=== PATIENT | female | born 1930 | race Caucasian/White ===

== ENCOUNTER 2017-03-11 15:52 | Inpatient (IN) | payer MEDICARE, MEDICAID ==
[~2017-03-11] VITALS: Ht 157.5 cm; Wt 83.6 kg
[~2017-03-11 15:52] MED LIST: AMLO2.5T78; BISO5TAB21; ESCI10TA; EZET1TAB9; FOLI-49; LOSA100T47
[2017-03-11] MEDS ORDERED: SOD CHLORIDE 0.9% 1,000 ML IV ONE (16:30)
--- NOTE | 2017-03-11 16:40 | ERA ---
ER Documentation Chief Complaint Date/Time DATE: 03/11/17 TIME: 16:16 Chief Complaint FEVER 103.1 X 4 DAYS HPI This is an 86-year-old female with a past medical history of dementia, previous stroke, atrial fibrillation who is presenting with fever, chills fatigue and generalized weakness for several days, but worse this morning. She was reportedly at her baseline yesterday according to her daughter and exhaust machine operator. Today she was far more fatigued than typical requiring extra effort by the exhaust machine operator in order to complete activities of daily living. The patient is incontinent at baseline, but she does not typically urinate herself while being dressed, which is what happened today. The patient has a warm and red right lower extremity, but the exhaust machine operator states that this was not the case this morning. The patient has had no congestion. She does not have a sore throat. She does not have any earache. She has not had a cough. She denies chest pain or trouble breathing. She has not been around any sick contacts. She received her flu shot this year. She received her pneumococcal vaccine within the last 5 years according to the daughter. The patient does not have a headache or vision changes. She denies any abdominal pain. She has not had any bloody or dark or tarry stools. She has not had any diarrhea. She has not had any burning or pain or bleeding with urination. The patient does not have any focal weakness or numbness or tingling to the face or extremities. ROS All systems reviewed and are negative except as per history of present illness. Medications Home Meds Reported Medications Acetaminophen* (Acetaminophen*) 500 MG Extra Strength Tablet, 500 MG PO QAM Y for PAIN AND OR ELEVATED TEMP, TAB 03/11/17 Memantine* (Namenda* XR) 28 Mg Cap.spr.24, 28 MG PO QPM, #30 TAB 03/11/17 Pregabalin* (Lyrica*) 25 Mg Capsule, 25 MG PO QHS, CAP 03/11/17 Escitalopram Oxalate* (Lexapro*) 5 Mg Tablet, 5 MG PO QPM, #30 TAB 03/11/17 Venlafaxine Hcl* (Venlafaxine Hcl ER*) 150 Mg Cap.er.24h, 150 MG PO DAILY, CAP 03/11/17 Celecoxib* (Celebrex*) 200 Mg Capsule, 200 MG PO DAILY, CAP 03/11/17 Losartan Potassium* (Losartan Potassium*) 100 Mg Tablet, 100 MG PO QAM, TAB 03/11/17 Warfarin Sodium* (Coumadin*) 3 Mg Tablet, 3 MG PO DAILY, TAB 03/11/17 Bisoprolol Fumarate* (Bisoprolol Fumarate*) 5 Mg Tablet, 5 MG PO QAM, TAB 03/11/17 Amlodipine Besylate* (Amlodipine Besylate*) 2.5 Mg Tablet, 2.5 MG PO QAM, #30 TAB 03/11/17 Simvastatin* (Zocor*) 20 Mg Tablet, 20 MG PO QHS, #30 TAB 03/11/17 Folic Acid* (Folic Acid*) 1 Mg Tablet, 1 MG PO DAILY, TAB 03/11/17 Famotidine* (Famotidine*) 20 Mg Tablet, 20 MG PO BID, #60 TAB 03/11/17 Donepezil* (Donepezil*) 5 Mg Tablet, 5 MG PO DAILY, #30 TAB 03/11/17 Discontinued Reported Medications Losartan Potassium* (Cozaar*) 100 Mg Tablet 02/10/10 Escitalopram Oxalate* (Lexapro*) 10 Mg Tablet 02/10/10 Bisoprolol Fumarate* (Bisoprolol Fumarate*) 5 Mg Tablet 02/10/10 Amlodipine Besylate* (Amlodipine Besylate*) 2.5 Mg Tablet 02/10/10 Folic Acid* (Folic Acid*) 1 Mg Tablet 02/10/10 Ezetimibe-Simvastatin (Vytorin) 1 Tab Tablet 02/10/10 Allergies Allergies: Coded Allergies: No Known Drug Allergy (Verified Allergy, Unknown, 03/11/17) PMhx/Soc History of Surgery: Yes (ORIN CATARACT SX) Anesthesia Reaction: No Hx Neurological Disorder: Yes (previous stroke) Hx Respiratory Disorders: No Hx Cardiac Disorders: Yes (A fib) Hx Psychiatric Problems: Yes (Dementia) Hx Miscellaneous Medical Probl: Yes (OA KNESS, HTN, DEPRESSIVE DIS, HYPERLIPIDEMIA) Hx Alcohol Use: No Hx Substance Use: No Hx Tobacco Use: No FmHx Family History: No coronary disease, No diabetes Physical Exam Vitals Vital Signs Date Time Temp Pulse Resp B/P Pulse Ox O2 Delivery O2 Flow Rate FiO2 03/11/17 17:34 98.9 122 16 144/89 96 Room Air 03/11/17 16:36 Nasal Cannula 2 03/11/17 15:55 103.1 101 18 186/86 99 Physical Exam Const: NAD Head: Atraumatic Eyes: Normal Conjunctiva ENT: Normal External Ears, Nose. Dentures. Dry Mucous membranes. No oropharyngeal exudate or erythema or asymmetry Neck: Full range of motion. ~ No meningismus. Resp: Clear to auscultation bilaterally Cardio: Regular rate, irregular rhythm, no murmurs Abd: Soft, non tender, non distended. Normal bowel sounds Skin: No petechiae. RLE erythema, warmth and tenderness to touch from knee down. Back: No midline or flank tenderness Ext: No cyanosis, or edema. No knee effusion or deformity. Neur: Awake and alert Psych: Normal Mood and Affect Result Diagram: 03/11/17 1615 03/11/17 1615 Results 24 hrs Laboratory Tests Test 03/11/17 16:15 03/11/17 17:30 White Blood Count 20.410^3/ul Red Blood Count 4.7310^6/ul Hemoglobin 14.7g/dl Hematocrit 44.0% Mean Corpuscular Volume 93.0fl Mean Corpuscular Hemoglobin 31.1pg Mean Corpuscular Hemoglobin Concent 33.4g/dl Red Cell Distribution Width 14.8% Platelet Count 84454^3/UL Mean Platelet Volume 10.9fl Neutrophils % 91.5% Lymphocytes % 3.2% Monocytes % 4.0% Eosinophils % 0.3% Basophils % 0.3% Nucleated Red Blood Cells % 0.0/100WBC Neutrophils # (Manual) 18.710^3/ul Lymphocytes # 0.710^3/ul Monocytes # 0.810^3/ul Eosinophils # 0.110^3/ul Basophils # 0.110^3/ul Nucleated Red Blood Cells # 0.010^3/ul Prothrombin Time 19.4Sec Prothrombin Time Ratio 1.5 INR International Normalized Ratio 1.62 Activated Partial Thromboplast Time 33.7Sec Sodium Level 146mmol/L Potassium Level 4.6mmol/L Chloride Level 103mmol/L Carbon Dioxide Level 25mmol/L Anion Gap 23 Blood Urea Nitrogen 37mg/dl Creatinine 1.25mg/dl Glucose Level 147mg/dl Lactic Acid Level 2.4mmol/L Calcium Level 10.1mg/dl Total Bilirubin 0.3mg/dl Direct Bilirubin 0.00mg/dl Indirect Bilirubin 0.3mg/dl Aspartate Amino Transf (AST/SGOT) 30IU/L Alanine Aminotransferase (ALT/SGPT) 31IU/L Alkaline Phosphatase 100IU/L Troponin I 0.034ng/ml Total Protein 9.0g/dl Albumin 4.5g/dl Globulin 4.50g/dl Albumin/Globulin Ratio 1.00 Urine Color YELLOW Urine Clarity SLIGHTLY CLOUDY Urine pH 5.0 Urine Specific [place] 1.019 Urine Ketones NEGATIVEmg/dL Urine Nitrite NEGATIVEmg/dL Urine Bilirubin NEGATIVEmg/dL Urine Urobilinogen NEGATIVEmg/dL Urine Leukocyte Esterase NEGATIVELeu/ul Urine Microscopic RBC 4/HPF Urine Microscopic WBC 3/HPF Urine Squamous Epithelial Cells FEW/HPF Urine Hemoglobin 1+mg/dL Urine Glucose NEGATIVEmg/dL Urine Total Protein 1+mg/dl Current Medications Medications (Trade) Dose Ordered Sig/Giselle Route PRN Reason Start Time Stop Time Status Last Admin Dose Admin Sodium Chloride (NS) 1,000 ml @ 1,000 mls/hr Q1H ONCE IV 03/11/17 16:30 03/11/17 17:40 DC 03/11/17 16:24 Sodium Chloride 2170 ml 2,170 ml BOLUS OVER 2 HOURS STAT IV* 03/11/17 17:37 03/11/17 17:40 DC 03/11/17 17:58 Vancomycin HCl 250 ml @ 125 mls/hr ONCE STAT IVPB 03/11/17 17:37 03/11/17 19:36 Cefepime HCl (Maxipime 1gm/50 ml (Pmx)) 50 ml @ 100 mls/hr ONCE ONCE IVPB 03/11/17 18:00 03/11/17 18:29 03/11/17 17:52 Procedures/MDM The patient's presenting with a fever. She was initially mildly tachycardic at 101 upon arrival with a fever at a temperature of 103 Fahrenheit. This is concerning for an infectious etiology of her symptoms. She may have had an unusual episode of incontinence, and UTI as a possibility. The patient also has redness and warmth to the right lower extremity, and I am concerned about cellulitis. The patient is significantly fatigued with generalized weakness and is having even more difficulty performing activities of daily living compared to her baseline. While UTI or cellulitis are higher on my list, I will perform a full infectious workup so as not to miss any possible insidious infection. Patient's blood work was obtained and reviewed. She had a significant leukocytosis at around 20 with left shift. She is not anemic. Her platelet count is unremarkable. The patient's BMP does demonstrate an elevation in her creatinine, but not significantly above her baseline. It was otherwise unremarkable.The patient does have an elevated lactic acid at 2.4. Normal saline bolus at 30 mL/kg was ordered. I was concerned of sepsis in this patient given these findings at 1715 p.m. this evening. The patient's chest x-ray showed findings concerning for pneumonia as described below: PROCEDURE: Portable chest x-ray. CLINICAL INDICATION: 86 years of age, female. Possible sepsis. TECHNIQUE: Portable AP view of the chest. COMPARISON: None available. FINDINGS: Atherosclerotic calcification thoracic aorta. Enlarged cardiopericardial silhouette. There is mild patchy opacity in the left mid lung zone that may represent an early infiltrate. There is bilateral bronchial wall thickening. Lungs are otherwise clear. Negative for pleural effusion or pneumothorax. No acute bony abnormality. IMPRESSION: Mild patchy opacity left mid lung zone may represent a developing infiltrate. Lungs could better be evaluated with dedicated PA and lateral views of the chest. Bronchial wall thickening may be due to inflammation of the lower airways that could be infectious or due to reactive airways disease. Enlarged cardiopericardial silhouette. Physician Flaco Date Time Electronically viewed and signed by Frank Pérez Physician on 03/11/2017 17: 11 The patient's urinalysis was sent off. It did not reveal an obvious infection. Blood cultures were obtained. The patient's EKG demonstrated a sinus rhythm with a ventricular rate of 83 bpm. The patient's WA interval is prolonged indicating a first-degree AV block. A PVC is also present. There are findings that are concerning for LVH. The patient has left axis deviation. There may also be evidence of a right bundle branch block. I do not see any ST or T-wave abnormalities concerning for an acute coronary syndrome. There are nonspecific changes of T-wave flattening in leads V5 and V6. I do not believe that her symptoms today are related to a cardiac etiology. While she was initially tachycardic upon arrival , this resolved and she currently does not show any signs of hemodynamic instability at this time. At this time, I am concerned of an infectious etiology of her symptoms. There are multiple sites of possible infection that need to be worked up further in the hospital. Antibiotics will be initiated in the emergency department. The patient will be admitted to the internal medicine service for further evaluation and management. Admit MDM: Patient's infectious symptoms have not stabilized and the patient is at risk of rapid decompensation. The patient will be admitted for careful hydration, antibiotic therapy, and infectious source control. Sepsis criteria: Infectious source: PNA vs Cellulitis End organ damage indicated by: Lactate > 2.0 mmol/L HR > 90 T > 38C Sepsis Management: Time of recognition of sepsis: 1714 Within 3 hours of recognition: Blood cultures x 2 before broad-spectrum antibiotics: Yes 30 ml/kg NS bolus Completed Initial lactate 2.4 Repeat lactate to be performed in the hospital Accepting Care Team Current data and ongoing care discussed. Admitting Physician: Christopher Relationship Consultant(s): None Outstanding Data: Culture results Departure Diagnosis: Primary Impression: Fever Qualified Code: R50.9 - Fever, unspecified fever cause Additional Impressions: Cellulitis of right lower leg PNA (pneumonia) Qualified Code: J18.9 - Pneumonia due to infectious organism, unspecified laterality, unspecified part of lung Condition: GORAN Leblanc MD Mar 11, 2017 16:26
[2017-03-11 16:43] LABS: BASOPHIL # 0.1 10^3/ul (0.0-0.1); BASOPHILS % 0.3 % (0.0-2.0); EOSINOPHILS # 0.1 10^3/ul (0.0-0.5); EOSINOPHILS % 0.3 % (0.0-7.0); HEMOGLOBIN 14.7 g/dl (12.0-16.0); LYMPHOCYTES # 0.7 10^3/ul (0.8-2.9); LYMPHOCYTES % 3.2 % (15.0-51.0); MEAN CORPUSCULAR HEMOGLOBIN 31.1 pg (29.0-33.0); MEAN CORPUSCULAR HGB CONC 33.4 g/dl (32.0-37.0); MEAN PLATELET VOLUME 10.9 fl (7.4-10.4); MONOCYTE # 0.8 10^3/ul (0.3-0.9); NEUTROPHILS % 91.5 % (39.0-77.0); PLATELET COUNT 312 10^3/UL (140-415); RED BLOOD COUNT 4.73 10^6/ul (4.20-5.40); RED CELL DISTRIBUTION WIDTH 14.8 % (11.5-14.5); WHITE BLOOD COUNT 20.4 10^3/ul (4.8-10.8)
[2017-03-11] MEDS ORDERED: DONE5TAB7 PO (16:46)
[2017-03-11] MEDS ORDERED: FAMO20TA18 PO (16:46)
[2017-03-11] MEDS ORDERED: FOLI-49 PO (16:46)
[2017-03-11] MEDS ORDERED: SIMV20TA PO (16:47)
[2017-03-11] MEDS ORDERED: AMLO2.5T78 PO (16:47)
[2017-03-11] MEDS ORDERED: LOSA100T7 PO (16:48)
[2017-03-11] MEDS ORDERED: BISO5TAB21 PO (16:48)
[2017-03-11] MEDS ORDERED: WARF3TAB PO (16:48)
[2017-03-11] MEDS ORDERED: CELE200C PO (16:49)
[2017-03-11] MEDS ORDERED: VENL150C94 PO (16:49)
[2017-03-11] MEDS ORDERED: ESCI5TAB PO (16:50)
[2017-03-11] MEDS ORDERED: LYRI25 PO (16:50)
[2017-03-11] MEDS ORDERED: MEMA28CA PO (16:51)
[2017-03-11] MEDS ORDERED: ACET-141 PO (16:55)
[2017-03-11 16:58] LABS: INR 1.62; PARTIAL THROMBOPLASTIN TIME 33.7 Sec (25.0-35.0); PROTIME 19.4 Sec (12.2-14.2); PT RATIO 1.5
[2017-03-11 17:04] LABS: ALBUMIN 4.5 g/dl (3.3-4.9); BILIRUBIN,INDIRECT 0.3 mg/dl (0-1.1); BILIRUBIN,TOTAL 0.3 mg/dl (0.2-1.3); CALCIUM 10.1 mg/dl (8.4-10.2); CREATININE 1.25 mg/dl (0.44-1.00); POTASSIUM 4.6 mmol/L (3.5-5.1)
--- NOTE | 2017-03-11 17:12 | RADRPT ---
PROCEDURE: Portable chest x-ray. CLINICAL INDICATION: 86 years of age, female. Possible sepsis. TECHNIQUE: Portable AP view of the chest. COMPARISON: None available. FINDINGS: Atherosclerotic calcification thoracic aorta. Enlarged cardiopericardial silhouette. There is mild patchy opacity in the left mid lung zone that may represent an early infiltrate. Ther e is bilateral bronchial wall thickening. Lungs are otherwise clear. Negative for pleural effusion or pneumothorax. No acute bony abnormality. IMPRESSION: Mild patchy opacity left mid lung zone may represent a developing infiltrate. Lungs could better be evaluated with dedicated PA and lateral views of the chest. Bronchial wall thickening may be due to inflammation of the lower airways that could be infectious o r due to reactive airways disease. Enlarged cardiopericardial silhouette. RPTAT: HCTS Physician Flaco Date Time Electronically viewed and signed by Physician Flaco on 03/11/2017 17:11 /
[2017-03-11 17:14] LABS: TROPONIN-I 0.034 ng/ml (0.00-0.12)
[2017-03-11] MEDS ORDERED: SODIUM CHLORIDE 0.9% 1L BAG IV* STA (17:37)
[2017-03-11] MEDS ORDERED: VANCOMYCIN 1 GM (PMX) 250 ML IVPB STA (17:37)
[2017-03-11 17:45] LABS: ADD UMIC YES; UR ASCORBIC ACID NEGATIVE (NEGATIVE); UR BILIRUBIN (Dip) NEGATIVE (NEGATIVE); UR BLOOD (Dip) 1+ mg/dL (NEGATIVE); UR CLARITY SLIGHTLY CLOUDY (CLEAR); UR COLOR YELLOW (YELLOW); UR GLUCOSE (Dip) NEGATIVE (NEGATIVE); UR KETONES (Dip) NEGATIVE (NEGATIVE); UR LEUKOCYTE ESTERASE (Dip) NEGATIVE Leu/ul (NEGATIVE); UR NITRITE (Dip) NEGATIVE (NEGATIVE); UR RBC 4 /HPF (0-5); UR SPECIFIC GRAVITY (Dip) 1.019 (1.003-1.030); UR SQUAMOUS EPITHELIAL CELL FEW /HPF (FEW); UR TOTAL PROTEIN (Dip) 1+ mg/dl (NEGATIVE); UR UROBILINOGEN (Dip) NEGATIVE (NEGATIVE)
[2017-03-11] MEDS ORDERED: CEFEPIME 1GM/50 ML (PMX) 50 ML IVPB ONE (18:00)
[2017-03-11] MEDS ORDERED: ONDANSETRON 4 MG INJ IV PRN (19:00)
[2017-03-11] MEDS ORDERED: ACETAMINOPHEN 325 MG TAB PO PRN (19:00)
[2017-03-11] MEDS ORDERED: VANCOMYCIN IV PER PHARMACY XX SCH (21:30)
[2017-03-11] MEDS ORDERED: ALBUTEROL 0.083% (NEB) 2.5 MG/3 ML AMP HHN PRN (21:30)
[2017-03-11] MEDS: SOD CHLORIDE 0.9% 1,000 ML IV SCH (21:30)
[2017-03-11 22:21] VITALS: TEMP 99
--- NOTE | 2017-03-11 22:33 | RADRPT ---
PROCEDURE: Ultrasound of the right lower extremity venous system. CLINICAL INDICATION: Right leg pain and swelling, deep venous thrombosis TECHNIQUE: Villalpando scale with and without compression, color doppler, spectral doppler of the venous system of the right lower extremity was performed. Venous augmentation maneuvers were utilized. COMPARISON: No prior studies are available for comparison. FINDINGS: Common femoral vein: Patent. Femoral vein: Patent. Popliteal vein: Patent. Calf veins: Patent. No soft tissue abnormalities are identified. IMPRESSION: No evidence of a deep vein thrombosis within the right lower extremity. RPTAT: AADD .Joel Yuen MD, MD Date Time Electronically viewed and signed by .Joel Yuen MD, on 03/11/2017 22:32 .B/
--- NOTE | 2017-03-11 22:53 | RADRPT ---
PROCEDURE: CT Brain without contrast. CLINICAL INDICATION: ALOC TECHNIQUE: A multiplanar CT of the brain was performed on a CT scanner utilizing axial imaging fro m the skull base through the vertex without IV contrast. The CTDIvol is 40.25 mGy and the DLP is 76 9.04 mGycm. One or more of the following dose reduction techniques were utilized: Automated exposu re control, adjustment of the mA and/or kV according to patient size, use of iterative reconstructio n technique. COMPARISON: None FINDINGS: No evidence of intracranial hemorrhage or abnormal extra-axial fluid collection. Left posterior fron yadira-parietal, frontal operculum, and left anterior superior temporal lobe encephalomalacia compatibl e with remote ischemic infarct. Mild ex vacuo dilatation of the left lateral ventricle. Small amou nt lacunar infarct in the right basal ganglia. Mild periventricular and subcortical white matter low attenuation compatible with sequelae of chroni c microvascular ischemic injury. The ventricles and subarachnoid spaces are prominent compatible mod erate volume loss. Opacification of the right maxillary sinus with mucoperiosteal wall thickening. The basal cisterns, posterior fossa contents, brainstem, craniocervical junction, orbits, pituitary axis, paranasal sinuses, mastoid air cells, and calvarium are unremarkable. IMPRESSION: 1. No intracranial hemorrhage or acute intracranial abnormality. 2. Remote left frontoparietal and temporal lobe encephalomalacia compatible with remote ischemic in farct. Early ischemic injury may be occult to CT imaging and diffusion weighted MRI may be considered as cl inically warranted. RPTAT:AAJJ Physician Johnny Date Time Electronically viewed and signed by Physician Johnny on 03/11/2017 22:53 NNEKA/
[2017-03-11 23:11] VITALS: BP 149/77; RESP 16
[2017-03-11 23:19] VITALS: PULSE 73
[2017-03-11 23:40] VITALS: PULSE 42
[2017-03-11 23:41] VITALS: Ht 157.5 cm; Wt 83.6 kg
[2017-03-11 23:42] VITALS: PULSE 103
[2017-03-12] VITALS (45 sets, daily range): BP systolic 125–176; BP diastolic 52–95; PULSE 0–127; RESP 16–40
[2017-03-12 00:20] LABS: MAGNESIUM 1.9 mg/dl (1.7-2.5); PHOSPHORUS 2.8 mg/dl (2.5-4.9)
[2017-03-12] MEDS ORDERED: ATROPINE 1 MG/10 ML SYRINGE ONE (00:45)
[2017-03-12 00:51] LABS: CK-MB 2.46 ng/ml (0.0-2.4); TROPONIN-I 0.052 ng/ml (0.00-0.12)
[2017-03-12] MEDS: ALBUTEROL 0.083% (NEB) 2.5 MG/3 ML AMP HHN SCH ×6 (01:00→19:59)
[2017-03-12 05:36] LABS: BASOPHILS % 0.2 % (0.0-2.0); HEMATOCRIT 38.6 % (37.0-47.0); HEMOGLOBIN 12.7 g/dl (12.0-16.0); LYMPHOCYTES # 0.9 10^3/ul (0.8-2.9); LYMPHOCYTES % 4.3 % (15.0-51.0); MEAN CORPUSCULAR HEMOGLOBIN 31.1 pg (29.0-33.0); MEAN CORPUSCULAR HGB CONC 32.9 g/dl (32.0-37.0); MEAN CORPUSCULAR VOLUME 94.6 fl (82.0-101.0); MEAN PLATELET VOLUME 11.4 fl (7.4-10.4); MONOCYTES % 4.6 % (0.0-11.0); NEUTROPHILS % 90.4 % (39.0-77.0); PLATELET COUNT 247 10^3/UL (140-415); RED BLOOD COUNT 4.08 10^6/ul (4.20-5.40); WHITE BLOOD COUNT 20.7 10^3/ul (4.8-10.8)
[2017-03-12 05:54] LABS: INR 1.72; PROTIME 20.3 Sec (12.2-14.2); PT RATIO 1.6
[2017-03-12 05:55] LABS: PARTIAL THROMBOPLASTIN TIME 38.7 Sec (25.0-35.0)
[2017-03-12 06:00] LABS: CALCIUM 8.5 mg/dl (8.4-10.2); CREATININE 0.87 mg/dl (0.44-1.00); MAGNESIUM 1.9 mg/dl (1.7-2.5); POTASSIUM 4.4 mmol/L (3.5-5.1)
[2017-03-12 06:09] LABS: CK-MB 2.71 ng/ml (0.0-2.4); TROPONIN-I 0.055 ng/ml (0.00-0.12)
[2017-03-12 06:25] LABS: THYROID STIMULATING HORMONE 2.26 MIU/L (0.465-4.680)
[2017-03-12] MEDS: ACETAMINOPHEN 500 MG TAB PO PRN ×2 (06:52→19:48)
[2017-03-12] MEDS ORDERED: LEVOFLOXACIN 750MG/D5W (PMX) 150 ML IVPB SCH (09:00)
[2017-03-12] MEDS ORDERED: ENOXAPARIN 100 MG/ML SYG SC SCH (09:00)
[2017-03-12] MEDS ORDERED: BISOPROLOL 5 MG TAB PO SCH (09:00)
[2017-03-12] MEDS: FAMOTIDINE 20 MG TAB PO SCH ×2 (09:31→20:18)
[2017-03-12] MEDS: SOD CHLORIDE 0.9% 1,000 ML IV SCH ×2 (09:31→17:30)
[2017-03-12] MEDS: FOLIC ACID 1 MG TAB PO SCH (09:31)
[2017-03-12] MEDS: VENLAFAXINE (XR) 75 MG CAP PO SCH (09:32)
--- NOTE | 2017-03-12 10:05 | HP ---
DATE OF ADMISSION: 03/11/2017 HISTORY OF PRESENT ILLNESS: This patient was reviewed multiple times overnight. The first evaluation was 03/11/2017 and the last was just recently a few minutes go. This is an 86-year-old female, she was brought in by her daughter and her caregiver because of chills and fever that had started earlier on the . She was thought to be warm to touch and she had some redness to her left leg that was concerning. They had also noted fatigue, but there was no documentation of cough. No shortness of breath, no dysuria or hematuria. No blood in her stool or in her urine. She has had no passing out episodes. She has had no focal neurologic abnormalities. After initial assessment, I was called by the nurses that the patient was having pauses on the monitor and having episodes where she seemed to be syncopizing versus passing out for a few seconds and this seems to coincide with the episodes of pauses. Based on this, I have ordered a CT scan of the brain, which is reviewed below and initially the patient was planned to be sent to telemetry floor, but because of persistence of these pauses, she was sent to the ICU and put on temporary pacing pads, which is where she is at this time. PAST MEDICAL HISTORY: 1. Positive for atrial fibrillation. 2. Previous stroke. 3. Hypertension. 4. Depression. 5. Dyslipidemia. 6. Early Alzheimer's. PAST SURGICAL HISTORY: Positive for: 1. Right total knee arthroplasty. 2. Bilateral cataract surgery. ALLERGIES: PATIENT HAS NO KNOWN DRUG ALLERGIES. SOCIAL HISTORY: The patient does not drink, smoke, or use illicit drugs. REVIEW OF SYSTEMS: I did a 12-point review of systems and basically findings are noted in the HPI. The patient has been unable to give much history, but she is quite pleasant. HOME MEDICATIONS: For a complete list, please review the patient's chart. These have been reviewed and reconciled. Note, the patient is also on Coumadin for atrial fibrillation. PHYSICAL EXAMINATION: Again the patient was reviewed multiple times. Please see details in my assessment and plan. VITAL SIGNS: Currently, temperature 98.4, pulse 108, respirations 22, blood pressure 144/76, saturation 99 percent on oxygen by nasal cannula at 2 L per minute. GENERAL: On examination at this time, the patient is calm, alert, and oriented. She was sleeping, but she is very easily arousable and once aroused, she is able to follow commands and she seems oriented. HEENT: Head normocephalic with equal round reactive pupils. Mucous membranes are moist. Posterior pharynx clear of erythema or exudate. NECK: Supple, without evidence of JVD. CHEST: She has diminished breath sounds bilaterally, but no crackles or wheezes. CARDIOVASCULAR: She has an irregular rhythm and it looked like a second-degree block on the monitor. No murmurs appreciated at this time. ABDOMEN: Obese but soft, nontender, nondistended. Normoactive bowel sounds. EXTREMITIES: She has right lower extremity mild erythema and warmth from the knee down, but there is no focality or any evidence of joint abnormalities. NEUROLOGIC: She is able to move all 4 extremities without deficit, without facial asymmetry. In fact, she is calm and cooperative with exam. LAB VALUES: Has leukocytosis of 20,000, but hemoglobin was fine at 14. BUN is 37, creatinine is 1.25. Sodium is 146. Lactic acid was elevated at 2.4, it slightly improved to 1.8 and is back up to 2.5 at this time. At first troponin was negative, but it is trending up, even though it is still within the normal range. His CKMB is mildly elevated at 2.46, but his total creatinine kinase is normal. Urinalysis is not highly suggestive of a urinary tract infection. Coag profile, INR is 1.6, which is subtherapeutic at this time. Please note also that she does have a neutrophil predominance on her CBC. IMAGING STUDIES: EKG shows atrial flutter with what looks like 1st degree AV block on the EKG, but on the monitor looks like second-degree with a rate of 83 beats per minute on the EKG. A chest x-ray showed mild patchy opacity left mid lung zone may represent a developing infiltrate, bronchial wall thickening and cardiomegaly. CT of the brain showed no acute intracranial hemorrhage or pathology, but there was a remote left frontal, parietal and temporal lobe encephalomalacia consistent with a remote ischemic infarct. Lower extremity Doppler of the right lower extremity did not show any evidence of a DVT in that leg. ASSESSMENT: The patient is an 86-year-old female, who was brought in by family because of fever, chills, and fatigue who is now managed for the followin. Recurrent cardiac pauses consistent with many syncopal episodes. 2. Sepsis with lactic acidosis, thought to be secondary to number 3. 3. Probable left sided pneumonia. 4. Acute kidney injury, rule out chronic kidney disease. 5. Chronic atrial fibrillation and flutter on Coumadin therapy with subtherapeutic INR. 6. Previous cerebrovascular accident. 7. Chronic osteoarthritis. 8. Uncontrolled hypertension. 9. History of depression. 10. History of dyslipidemia. PLAN: At this time, the patient has been transferred to the intensive care unit for close monitoring. We have commenced empiric antibiotics. We have sent a sample for cultures. The patient will be seen by cardiology as soon as possible. I would benefit from a pacemaker if the family chooses to pursue. In the meantime, will continue to complete an ACS rule out, we will get a 2D echocardiogram as well, and provide supportive care. Further interventions will depend on her clinical course. For prophylaxis she will be on heparin at this time for prophylaxis. The patient was on Coumadin with an INR of 1.6, I will hold that is briefly until she has been seen by the brass molder. If anticoagulation is a contraindication to the procedure, the patient may have to be started on heparin drip. However, I will defer to Cardiology on back. Again all further intervention will depend on the clinical course and findings. Overall, evaluation time on this patient today has been more than 2 hours. Dictated By: Alma White MD /feliberto/j carlos /Document#: [id number]
--- NOTE | 2017-03-12 11:27 | EN ---
Date/Time of Note Date/Time of Note DATE: 03/12/17 TIME: 11:16 Event Note Medicine Medicine Event Note 03/12/2017, 1100: Medicine Primary Team Note: At this time we are assuming care of this patient, Ms. Roach, from the hospitalist service. Patient is the primary patient of my partner, Dr. Yudith Cantor, and was mistakenly admitted to the hospitalist service by the emergency room. Family wishes that care remain in our office. Briefly, this is an 86 y/o H F w/ h/o multiple senescent medical problems including HTN, hyperlipidemia, Atrial fibrillation, osteoarthritis, osteoporosis , and repeated falls who was in her [facility] until yesterday am when she awoke feeling well. However, after shower pt. had chills that would not stop. Daughter took temp and was > 102 degrees F. Called me and I recommended UCC to eval fever. Brought her to ER where pt. was determined to be more ill. Labs indicated sepsis syndrome including WBC > 20K and elevated lactate. Urine was ( -) but there was a small infiltrate on CXR and also discovery in the ER of RLL cellulitis. While in ER, awaiting transfer to telemetry, pt. began having syncopal episodes while supine. No notes by the ER nurse that these were associated w/ dropped ventricular beats on the monitor. However, in telemetry these were noticed and clearly associated w/ the patient's lapses in consciousness. Pt. was transferred to ICU and pt.'s educational guidance counselor, Dr. Pérez, was notified who is on his way to see her. PE: BP: 160/65, P: 62, T: 98.1, R: 16 Gen: elderly H F lying comfortably in bed, NAD HEENT: PERRL, OC/OP w/o lesions Neck: no TM/no bruits Lungs: CTA B Heart: RRR, no MCR Abd: soft, NT, ND, (+) BS, no masses Ext: RLL redness, warmth extending from mid-knee to lower oliver on anterior portion. NTTP Neuro: A, A, intact A/P: Agree w/ primary team that this is sepsis syndrome likely related to cellulitis although possibly also to pneumonia. Cont. IV antibiotics. Reevaluate chest over time to confirm or deny presence of PNA. Defer to cardiology for management of dropped ventricular beats. Will reevaluate daily. MELANI HASKINS MD Mar 12, 2017 11:27
[2017-03-12] MEDS: DONEPEZIL 5 MG TAB PO SCH (11:35)
[2017-03-12] MEDS: AMLODIPINE 2.5 MG TAB PO SCH (11:35)
--- NOTE | 2017-03-12 12:07 | CONS ---
Date/Time of Note Date/Time of Note DATE: 03/12/17 TIME: 11:45 Assessment/Plan Assessment/Plan Chief Complaint/Hosp Course 1. sick sinus syndrome with symptomatic tachy bradysyndrome 2. P afib 3. cellulitis LE and leukocytosis 4. HTN and HTN heart disease 5. hx CVA 6. hx brain aneurysm 7. anxiety/ depression 8. presyncope due to above RECOMMENDATIONS: Lovenox for now abx as per IM off of betablocker for now ECHO today will check TSH cont norvasc PPM next week, probably monday, once infection has resolved. D/W daughter and R /B/A D/W her and she agrees. ICU care for today. probably tele tomorrow. Thank you for his referral will continue to follow along with you. JOSEF GÓMEZ MD [facility] Problems: Consultation Date/Type/Reason Admit Date/Time Mar 11, 2017 at 18:37 Date of Consultation: Mar 12, 2017 Type of Consultation: cardiology Reason for Consultation Pafib. long pauses. Referring Provider: MELANI HASKINS MD Hx of Present Illness CC: fever, chills weakness, Thank you for his referral. History was inserted from the patient on discussion with her friend at the bedside discussion with Dr. Moore will admit the patient discussed with Dr. Mayen Review of the old chart. She is also very well-known to me from outpatient workup. This is a pleasant 86-year-old female with history of paroxysmal atrial fibrillation who was noted to have fever and chills. Patient has been admitted was noted to multiple pauses of more than 5-8 seconds. Patient with complaint of dizziness since yesterday intermittently. No mati syncope but she has had presyncope episodes and felt like she would get tunnel vision and about to pass out. Patient has been in sinus rhythm but in paroxysmal atrial fibrillation with long pauses after that. Patient has been in the intensive care unit was going asked to evaluate and treat. Allergies: No known drug allergies Medical history: Atrial fibrillation History of CVA Hypertension Abnormal EKG Dyslipidemia Anxiety depression Probable brain aneurysm Family history: Patient mother had an ME at age 86. Social history patient does not smoke or drink. Her primary doctor is Dr. Cantor MEDS: Reviewed. ROS; as above only + noted redness on her right leg. she denies all others. Social History Smoking Status: Never smoker Exam/Review of Systems Vital Signs Vitals Vital Signs Date Time Temp Pulse Resp B/P Pulse Ox O2 Delivery O2 Flow Rate FiO2 03/12/17 09:10 62 16 96 Nasal Cannula 2.0 03/12/17 08:00 98.1 160/65 Intake and Output 03/11/17 03/11/17 03/12/17 15:00 23:00 07:00 Intake Total 2320 ml 100 ml Balance 2320 ml 100 ml Exam General: obese. no acute distress HEENT: NC/AT. pupils are equal. round. NECK: NO JVD. no stridor. CV: RRR. systolic murmur; no gallop or rubs. PULM: no wheezing or rhonchi. GI: SOFT,obese. NT, ND, no rebound or guarding Extremity: trace LE edema with erythema right leg. no clubbing. neuro: awake and alert, and oriented. . Psych: anxious but pleasant rectal: deferred : normal ECG NSR. LVH. LAFB. IVCD septal infarct Results Result Diagram: 03/12/17 0435 03/12/17 0435 Results 24 hrs Laboratory Tests Test 03/11/17 16:15 03/11/17 17:30 03/11/17 18:45 03/11/17 23:27 White Blood Count 20.4 H Red Blood Count 4.73 Hemoglobin 14.7 Hematocrit 44.0 Mean Corpuscular Volume 93.0 Mean Corpuscular Hemoglobin 31.1 Mean Corpuscular Hemoglobin Concent 33.4 Red Cell Distribution Width 14.8 H Platelet Count 312 Mean Platelet Volume 10.9 H Neutrophils % 91.5 H Lymphocytes % 3.2 L Monocytes % 4.0 Eosinophils % 0.3 Basophils % 0.3 Nucleated Red Blood Cells % 0.0 Neutrophils # (Manual) 18.7 H Lymphocytes # 0.7 L Monocytes # 0.8 Eosinophils # 0.1 Basophils # 0.1 Nucleated Red Blood Cells # 0.0 Prothrombin Time 19.4 H Prothrombin Time Ratio 1.5 INR International Normalized Ratio 1.62 Activated Partial Thromboplast Time 33.7 Sodium Level 146 H Potassium Level 4.6 Chloride Level 103 Carbon Dioxide Level 25 Anion Gap 23 H Blood Urea Nitrogen 37 H Creatinine 1.25 H Glucose Level 147 Lactic Acid Level 2.4 *H 1.8 2.5 *H Calcium Level 10.1 Total Bilirubin 0.3 Direct Bilirubin 0.00 Indirect Bilirubin 0.3 Aspartate Amino Transf (AST/SGOT) 30 Alanine Aminotransferase (ALT/SGPT) 31 Alkaline Phosphatase 100 Troponin I 0.034 0.052 Total Protein 9.0 H Albumin 4.5 Globulin 4.50 H Albumin/Globulin Ratio 1.00 Urine Color YELLOW Urine Clarity SLIGHTLY CLOUDY A Urine pH 5.0 Urine Specific [place] 1.019 Urine Ketones NEGATIVE Urine Nitrite NEGATIVE Urine Bilirubin NEGATIVE Urine Urobilinogen NEGATIVE Urine Leukocyte Esterase NEGATIVE Urine Microscopic RBC 4 Urine Microscopic WBC 3 Urine Squamous Epithelial Cells FEW Urine Hemoglobin 1+ H Urine Glucose NEGATIVE Urine Total Protein 1+ H Phosphorus Level 2.8 Magnesium Level 1.9 Creatine Kinase 105 Creatine Kinase Index 2.3 Creatinine Kinase MB (Mass) 2.46 H Test 03/12/17 04:35 White Blood Count 20.7 H Red Blood Count 4.08 L Hemoglobin 12.7 Hematocrit 38.6 Mean Corpuscular Volume 94.6 Mean Corpuscular Hemoglobin 31.1 Mean Corpuscular Hemoglobin Concent 32.9 Red Cell Distribution Width 15.0 H Platelet Count 247 # Mean Platelet Volume 11.4 H Neutrophils % 90.4 H Lymphocytes % 4.3 L Monocytes % 4.6 Eosinophils % 0.0 Basophils % 0.2 Nucleated Red Blood Cells % 0.0 Neutrophils # (Manual) 18.7 H Lymphocytes # 0.9 Monocytes # 1.0 H Eosinophils # 0.0 Basophils # 0.0 Nucleated Red Blood Cells # 0.0 Prothrombin Time 20.3 H Prothrombin Time Ratio 1.6 INR International Normalized Ratio 1.72 Activated Partial Thromboplast Time 38.7 H Sodium Level 141 Potassium Level 4.4 Chloride Level 108 Carbon Dioxide Level 22 Anion Gap 15 # Blood Urea Nitrogen 27 H Creatinine 0.87 Glucose Level 148 Hemoglobin A1c 5.6 Lactic Acid Level 2.1 H Calcium Level 8.5 Magnesium Level 1.9 Creatine Kinase 87 Creatine Kinase Index 3.1 Creatinine Kinase MB (Mass) 2.71 H Troponin I 0.055 Thyroid Stimulating Hormone (TSH) 2.260 Medications Medications Current Medications Sodium Chloride (NS) 1,000 ml @ 100 mls/hr Q10H IV Last administered on t 09:31; Admin Dose 100 MLS/HR; Start 03/11/17 at 21:30 Acetaminophen (Tylenol Tab) 500 mg QAM PRN PO PAIN AND OR ELEVATED TEMP Last administered on 03/12/17 06:52; Admin Dose 500 MG; Start 03/11/17 at 21:30 Amlodipine Besylate (Norvasc) 2.5 mg QAM PO Last administered on 03/12/17 11: 35; Admin Dose 2.5 MG; Start 03/12/17 at 09:00 Donepezil HCl (Aricept) 5 mg DAILY PO Last administered on 03/12/17 11:35; Admin Dose 5 MG; Start 03/12/17 at 09:00 Escitalopram Oxalate (Lexapro) 5 mg QPM PO ; Start 03/12/17 at 21:00 Famotidine (Pepcid) 20 mg BID PO Last administered on 03/12/17 09:31; Admin Dose 20 MG; Start 03/12/17 at 09:00 Folic Acid (Folic Acid) 1 mg DAILY PO Last administered on 03/12/17 09:31; Admin Dose 1 MG; Start 03/12/17 at 09:00 Pregabalin (Lyrica) 25 mg QHS PO ; Start 03/12/17 at 21:00 Venlafaxine HCl (Effexor Xr) 150 mg DAILY PO Last administered on 03/12/17 09: 32; Admin Dose 150 MG; Start 03/12/17 at 09:00 Atorvastatin Calcium 10 mg 10 mg QHS PO ; Start 03/12/17 at 21:00 Levofloxacin/ Dextrose (Levaquin 750 Mg/ D5W 150 ml (Pmx)) 150 ml @ 100 mls/hr Q24H IVPB Last administered on 03/12/17 11:34; Admin Dose 100 MLS/HR; Start at 09:00; Stop 03/12/17 at 13:00 Enoxaparin Sodium 85 mg 85 mg Q12 SC Last administered on 03/12/17 09:36; Admin Dose 85 MG; Start 03/12/17 at 09:00 Levofloxacin/ Dextrose 150 ml @ 100 mls/hr Q48H IVPB ; Start 03/14/17 at 09:00 Vancomycin HCl/ Sodium Chloride (Vancocin/NS) 150 ml @ 75 mls/hr Q24H IVPB ; Start 03/12/17 at 11:00 JOSEF GÓMEZ MD Mar 12, 2017 12:07
--- NOTE | 2017-03-12 13:00 | RADRPT ---
Echocardiogram Report Patient Name: JENNIFER LAWRENCE Gender: Female Date: 1930 Study Date: 12-Mar-2017 Senior Principal Process Engineer: Suzie Weems RDCS Location: [address] [place] [address]. Physician: CARLA ARENAS Quality: Good Procedures: Transthoracic echocardiogram with complete 2D, M-Mode, and doppler examination. Indications: Arrythmia. 2D/M Mode Doppler Measurement Value Normal Ranges Measurement Value Normal Ranges LVIDd 2D 4.3 3.5 - 5.6 cm AV Peak Ian 1.6 m/sec LVIDs 2D 2.6 2.1 - 4.1 cm AV Peak PG 10.0 mmHg FS 2D 39.1 % AI Peak PG 59.0 mmHg LVPWd 2D 1.2 0.6 - 1.1 cm AI Peak Ian 3.8 m/sec IVSd 2D 1.9 0.6 - 1.1 cm AI PHT 338.0 msec IVS/LVPW 2D 1.5 LVOT Peak Ian 1.4 m/sec AoR Diam 2D 2.6 2.0 - 3.7 cm LVOT Peak PG 8.0 mmHg LA/Ao 2D 2 0 - 1 MV E Peak Ian 0.9 m/sec EDV 2D 77.9 cm3 MV A Peak Ian 0.5 m/sec ESV 2D 17.6 cm3 MV E/A 1.8 LA Dimen 2D 4.1 2.3 - 4.0 cm MV Decel Time 169 msec MV E/A 1.8 TR Peak Ian 3.1 m/sec TR Peak PG 38.0 mmHg RVSP 46.0 mmHg Findings Left Ventricle: Normal left ventricular systolic function. Normal left ventricular cavity size. Severe asymmetric septal hypertrophy. Ejection fraction is visually estimated at 60 %. Abnormal Diastolic Function. Right Ventricle: Normal right ventricular size. Normal right ventricular systolic function. Left Atrium: There is mild enlargement of left atrium. Right Atrium: The right atrium is normal in size. Mitral Valve: Mitral valve leaflets appear mildly thickened. Mild mitral annular calcification. Mild mitral valve regurgitation. Aortic Valve: No hemodynamically significant aortic stenosis by doppler. Aortic cusps appear mildly calcified. Moderate aortic valve regurgitation. Tricuspid Valve: Normal appearance of the tricuspid valve. Estimated peak PA systolic pressure 46 mmHg. There is mild tricuspid regurgitation. Pulmonic Valve: Normal pulmonic valve appearance. There is moderate pulmonic regurgitation. Pericardium: Normal pericardium with no significant pericardial effusion. Aorta: Normal aortic root. IVC: Normal size and no respiratory collapse consistent with elevated right atrial pressure. Conclusions 1.Normal left ventricular systolic function. Normal left ventricular cavity size. Severe asymmetric septal hypertrophy. Ejection fraction is visually estimated at 60 %. Abnormal Diastolic Function. 2.There is mild enlargement of left atrium. 3.Mitral valve leaflets appear mildly thickened. Mild mitral annular calcification. Mild mitral valve regurgitation. 4.No hemodynamically significant aortic stenosis by doppler. Aortic cusps appear mildly calcified. Moderate aortic valve regurgitation. 5.Normal appearance of the tricuspid valve. Estimated peak PA systolic pressure 46 mmHg. There is mild tricuspid regurgitation. 6.Normal size and no respiratory collapse consistent with elevated right atrial pressure. 7.Normal pericardium with no significant pericardial effusion. Electronically Signed By: Luis Pérez 12-Mar-2017 12:59:36 -0700 Patient Name: JENNIFER LAWRENCE Study Date: 12-Mar-2017 [id number]
[2017-03-12] MEDS: VANCOMYCIN 750 MG in SOD CHLORIDE 0.9% 150 ML IVPB SCH (13:24)
--- NOTE | 2017-03-12 13:30 | RADRPT ---
PROCEDURE: Ultrasound of the soft tissues of the right knee. CLINICAL INDICATION: Right knee pain and swelling. TECHNIQUE: High-resolution sonography of the right knee at the site of the pain and swelling was p erformed in the axial and sagittal planes. COMPARISON: None FINDINGS: There is no fluid collection or mass. There is no joint effusion IMPRESSION: 1. Normal ultrasound of the soft tissues of the right knee. 2. Any further management regarding the pain and swelling should be based on clinical grounds. RPTAT: QQ .Marcus Glez MD, MD Date Time Electronically viewed and signed by .Marcus Glez MD, MD on 03/12/2017 13:30 .R/
--- NOTE | 2017-03-12 16:26 | RADRPT ---
PROCEDURE: XR Chest. CLINICAL INDICATION: Shortness of breath. TECHNIQUE: Single frontal view. COMPARISON: 03/11/2017. FINDINGS: There is mild interstitial pulmonary disease bilaterally, unchanged. The lungs are otherwise clear. The heart is enlarged. There is calcification in the aorta consistent with atherosclerosis. There is no pleural effusion. There is no pneumothorax. IMPRESSION: 1. Mild interstitial pulmonary disease bilaterally, unchanged. 2. Cardiomegaly and atherosclerosis. RPTAT: QQ .Marcus Glez MD, MD Date Time Electronically viewed and signed by .Marcus Glez MD, MD on 03/12/2017 16:25 .R/
[2017-03-12] MEDS ORDERED: WARFARIN 3 MG TAB PO SCH (17:00)
[2017-03-12] MEDS: PREGABALIN 25 MG CAP PO SCH (20:17)
[2017-03-12] MEDS: ATORVASTATIN 10 MG TAB PO SCH (20:17)
[2017-03-12] MEDS: ESCITALOPRAM 10 MG TAB PO SCH (20:18)
[2017-03-13] VITALS (45 sets, daily range): BP systolic 83–181; BP diastolic 45–111; PULSE 63–135; RESP 11–33
[2017-03-13] MEDS: SOD CHLORIDE 0.9% 1,000 ML IV SCH ×2 (00:04→08:51)
[2017-03-13] MEDS: ACETAMINOPHEN 500 MG TAB PO PRN ×2 (05:34→09:47)
[2017-03-13 06:35] LABS: BASOPHILS % 0.2 % (0.0-2.0); EOSINOPHILS % 0.3 % (0.0-7.0); HEMATOCRIT 35.2 % (37.0-47.0); HEMOGLOBIN 11.3 g/dl (12.0-16.0); LYMPHOCYTES # 1.7 10^3/ul (0.8-2.9); LYMPHOCYTES % 11.4 % (15.0-51.0); MEAN CORPUSCULAR HEMOGLOBIN 30.6 pg (29.0-33.0); MEAN CORPUSCULAR HGB CONC 32.1 g/dl (32.0-37.0); MEAN CORPUSCULAR VOLUME 95.4 fl (82.0-101.0); MEAN PLATELET VOLUME 11.5 fl (7.4-10.4); MONOCYTE # 1.4 10^3/ul (0.3-0.9); MONOCYTES % 9.2 % (0.0-11.0); NEUTROPHILS % 78.3 % (39.0-77.0); PLATELET COUNT 223 10^3/UL (140-415); RED BLOOD COUNT 3.69 10^6/ul (4.20-5.40); RED CELL DISTRIBUTION WIDTH 15.9 % (11.5-14.5); WHITE BLOOD COUNT 14.6 10^3/ul (4.8-10.8)
[2017-03-13 07:09] LABS: ALBUMIN 3.1 g/dl (3.3-4.9); ALBUMIN/GLOBULIN RATIO 0.79; BILIRUBIN,INDIRECT 0.2 mg/dl (0-1.1); BILIRUBIN,TOTAL 0.2 mg/dl (0.2-1.3); CALCIUM 8.6 mg/dl (8.4-10.2); CREATININE 0.82 mg/dl (0.44-1.00); POTASSIUM 4.4 mmol/L (3.5-5.1)
[2017-03-13 07:10] LABS: INR 1.54; PROTIME 18.6 Sec (12.2-14.2); PT RATIO 1.5
[2017-03-13 07:39] LABS: THYROID STIMULATING HORMONE 4.78 MIU/L (0.465-4.680)
[2017-03-13] MEDS: FAMOTIDINE 20 MG TAB PO SCH (09:26)
[2017-03-13] MEDS: DONEPEZIL 5 MG TAB PO SCH (09:26)
[2017-03-13] MEDS: AMLODIPINE 2.5 MG TAB PO SCH (09:26)
[2017-03-13] MEDS: FOLIC ACID 1 MG TAB PO SCH (09:26)
[2017-03-13] MEDS: VENLAFAXINE (XR) 75 MG CAP PO SCH (09:27)
[2017-03-13] MEDS: ENOXAPARIN 60 MG/0.6 ML SYG SC SCH ×2 (09:36→21:09)
[2017-03-13] MEDS: VANCOMYCIN 750 MG in SOD CHLORIDE 0.9% 150 ML IVPB SCH (11:24)
--- NOTE | 2017-03-13 14:56 | PN ---
Date/Time of Note Date/Time of Note DATE: 03/13/17 TIME: 14:50 Assessment/Plan VTE Prophylaxis VTE Prophylaxis Intervention: LMWH Lines/Catheters IV Catheter Type (from Nrsg): Peripheral IV Urinary Cath still in place: Yes Subjective 24 Hr Interval Summary Free Text/Dictation 1 cellulitis, sepsis...wbc down, afebrile, leg has minimal erythema now, no knee involvement, no leg pain 2. afib, pauses, in afib now on drip, dr garza wishes to delay pacer until signs of infection resolved. will get i.d. consultaton all cultures negative to date, stay on vanco for now, consider poi meds in next few days 3. to get up to chair with pt, amb s able. advance diet alert lungs clear, abd is soft, somewhat distgended, nontender rt leg cellulitis resolving co headache, better w tylenol co being nervous, tried to reassure Gastrointestinal: constipation Psychological: anxiety Exam/Review of Systems Vital Signs Vitals Vital Signs Date Time Temp Pulse Resp B/P Pulse Ox O2 Delivery O2 Flow Rate FiO2 03/13/17 14:00 115 23 149/99 95 03/13/17 13:00 98.8 03/13/17 09:00 Room Air 03/13/17 09:00 2.0 03/12/17 20:01 21 Intake and Output 03/12/17 03/12/17 03/13/17 15:00 23:00 07:00 Intake Total 1265 ml 475 ml 100 ml Output Total 570 ml 580 ml 400 ml Balance 695 ml -105 ml -300 ml Results Result Diagram: 03/13/17 0535 03/13/17 0535 Results 24 hrs Laboratory Tests Test 03/13/17 05:35 White Blood Count 14.6 #H Red Blood Count 3.69 L Hemoglobin 11.3 L Hematocrit 35.2 L Mean Corpuscular Volume 95.4 Mean Corpuscular Hemoglobin 30.6 Mean Corpuscular Hemoglobin Concent 32.1 Red Cell Distribution Width 15.9 H Platelet Count 223 Mean Platelet Volume 11.5 H Neutrophils % 78.3 H Lymphocytes % 11.4 L Monocytes % 9.2 Eosinophils % 0.3 Basophils % 0.2 Nucleated Red Blood Cells % 0.0 Neutrophils # (Manual) 11.4 H Lymphocytes # 1.7 Monocytes # 1.4 H Eosinophils # 0.0 Basophils # 0.0 Nucleated Red Blood Cells # 0.0 Prothrombin Time 18.6 H Prothrombin Time Ratio 1.5 INR International Normalized Ratio 1.54 Sodium Level 140 Potassium Level 4.4 Chloride Level 107 Carbon Dioxide Level 24 Anion Gap 13 Blood Urea Nitrogen 17 # Creatinine 0.82 Glucose Level 112 Lactic Acid Level 1.5 Calcium Level 8.6 Magnesium Level 1.8 Total Bilirubin 0.2 Direct Bilirubin 0.00 Indirect Bilirubin 0.2 Aspartate Amino Transf (AST/SGOT) 37 Alanine Aminotransferase (ALT/SGPT) 30 Alkaline Phosphatase 78 B-Type Natriuretic Peptide 9120 H Total Protein 7.0 # Albumin 3.1 #L Globulin 3.90 H Albumin/Globulin Ratio 0.79 Thyroid Stimulating Hormone (TSH) 4.780 H Free Thyroxine 1.05 Digoxin Level < 0.4 L Medications Medications Current Medications Acetaminophen (Tylenol Tab) 500 mg QAM PRN PO PAIN AND OR ELEVATED TEMP Last administered on 03/13/17 09:47; Admin Dose 500 MG; Start 03/11/17 at 21:30 Amlodipine Besylate (Norvasc) 2.5 mg QAM PO Last administered on 03/13/17 09: 26; Admin Dose 2.5 MG; Start 03/12/17 at 09:00 Donepezil HCl (Aricept) 5 mg DAILY PO Last administered on 03/13/17 09:26; Admin Dose 5 MG; Start 03/12/17 at 09:00 Escitalopram Oxalate (Lexapro) 5 mg QPM PO Last administered on 03/12/17 20:18 ; Admin Dose 5 MG; Start 03/12/17 at 21:00 Folic Acid (Folic Acid) 1 mg DAILY PO Last administered on 03/13/17 09:26; Admin Dose 1 MG; Start 03/12/17 at 09:00 Pregabalin (Lyrica) 25 mg QHS PO Last administered on 03/12/17 20:17; Admin Dose 25 MG; Start 03/12/17 at 21:00 Venlafaxine HCl (Effexor Xr) 150 mg DAILY PO Last administered on 03/13/17 09: 27; Admin Dose 150 MG; Start 03/12/17 at 09:00 Atorvastatin Calcium 10 mg 10 mg QHS PO Last administered on 03/12/17 20:17; Admin Dose 10 MG; Start 03/12/17 at 21:00 Levofloxacin/ Dextrose 150 ml @ 100 mls/hr Q48H IVPB ; Start 03/14/17 at 09:00 Vancomycin HCl/ Sodium Chloride (Vancocin/NS) 150 ml @ 75 mls/hr Q24H IVPB Last administered on 03/13/17 11:24; Admin Dose 75 MLS/HR; Start 03/12/17 at 11 :00 Enoxaparin Sodium (Lovenox) 60 mg Q12 SC Last administered on 03/13/17 09:36; Admin Dose 60 MG; Start 03/13/17 at 09:00 Famotidine (Pepcid) 20 mg DAILY PO ; Start 03/14/17 at 09:00 Miscellaneous Information (*Rx Drug Level Order Reminder*) VANCOMYCIN TROUGH AT 1000 ONCE ONCE XX ; Start 03/14/17 at 10:00; Stop 03/14/17 at 10:01 Clonidine 0.1 mg 0.1 mg Q6H PRN PO ELEVATED BLOOD PRESSURE Last administered on 03/13/17 11:24; Admin Dose 0.1 MG; Start 03/13/17 at 11:30 Diltiazem HCl (Cardizem-D5W 125 Mg/125 ml Drip) 125 ml @ 5 mls/hr TITRATE IV ; Start 03/13/17 at 15:00; Status LOLA VERDUGO MD Mar 13, 2017 14:56
[2017-03-13] MEDS ORDERED: MAGNESIUM HYDROXIDE 30ML CUP PO ONE (15:00)
[2017-03-13] MEDS ORDERED: DILTIAZEM-D5W 125MG/125ML DRIP 125 ML IV SCH (15:00)
--- NOTE | 2017-03-13 16:28 | CONS ---
Date/Time of Note Date/Time of Note DATE: 03/13/17 TIME: 16:27 Consultation Date/Type/Reason Admit Date/Time Mar 11, 2017 at 18:37 Date of Consultation: Mar 13, 2017 Type of Consultation: ID Reason for Consultation Antibiotic management Gastrointestinal: constipation Psychological: anxiety Social History Smoking Status: Never smoker Exam/Review of Systems Vital Signs Vitals Vital Signs Date Time Temp Pulse Resp B/P Pulse Ox O2 Delivery O2 Flow Rate FiO2 03/13/17 16:00 134 03/13/17 15:00 33 131/78 100 03/13/17 13:00 98.8 03/13/17 09:00 Room Air 03/13/17 09:00 2.0 03/12/17 20:01 21 Intake and Output 03/12/17 03/12/17 03/13/17 15:00 23:00 07:00 Intake Total 1265 ml 475 ml 100 ml Output Total 570 ml 580 ml 400 ml Balance 695 ml -105 ml -300 ml Results Result Diagram: 03/13/17 0535 03/13/17 0535 Results 24 hrs Laboratory Tests Test 03/13/17 05:35 White Blood Count 14.6 #H Red Blood Count 3.69 L Hemoglobin 11.3 L Hematocrit 35.2 L Mean Corpuscular Volume 95.4 Mean Corpuscular Hemoglobin 30.6 Mean Corpuscular Hemoglobin Concent 32.1 Red Cell Distribution Width 15.9 H Platelet Count 223 Mean Platelet Volume 11.5 H Neutrophils % 78.3 H Lymphocytes % 11.4 L Monocytes % 9.2 Eosinophils % 0.3 Basophils % 0.2 Nucleated Red Blood Cells % 0.0 Neutrophils # (Manual) 11.4 H Lymphocytes # 1.7 Monocytes # 1.4 H Eosinophils # 0.0 Basophils # 0.0 Nucleated Red Blood Cells # 0.0 Prothrombin Time 18.6 H Prothrombin Time Ratio 1.5 INR International Normalized Ratio 1.54 Sodium Level 140 Potassium Level 4.4 Chloride Level 107 Carbon Dioxide Level 24 Anion Gap 13 Blood Urea Nitrogen 17 # Creatinine 0.82 Glucose Level 112 Lactic Acid Level 1.5 Calcium Level 8.6 Magnesium Level 1.8 Total Bilirubin 0.2 Direct Bilirubin 0.00 Indirect Bilirubin 0.2 Aspartate Amino Transf (AST/SGOT) 37 Alanine Aminotransferase (ALT/SGPT) 30 Alkaline Phosphatase 78 B-Type Natriuretic Peptide 9120 H Total Protein 7.0 # Albumin 3.1 #L Globulin 3.90 H Albumin/Globulin Ratio 0.79 Thyroid Stimulating Hormone (TSH) 4.780 H Free Thyroxine 1.05 Digoxin Level < 0.4 L Medications Medications Current Medications Amlodipine Besylate (Norvasc) 2.5 mg QAM PO Last administered on 03/13/17 09: 26; Admin Dose 2.5 MG; Start 03/12/17 at 09:00 Donepezil HCl (Aricept) 5 mg DAILY PO Last administered on 03/13/17 09:26; Admin Dose 5 MG; Start 03/12/17 at 09:00 Escitalopram Oxalate (Lexapro) 5 mg QPM PO Last administered on 03/12/17 20:18 ; Admin Dose 5 MG; Start 03/12/17 at 21:00 Folic Acid (Folic Acid) 1 mg DAILY PO Last administered on 03/13/17 09:26; Admin Dose 1 MG; Start 03/12/17 at 09:00 Pregabalin (Lyrica) 25 mg QHS PO Last administered on 03/12/17 20:17; Admin Dose 25 MG; Start 03/12/17 at 21:00 Venlafaxine HCl (Effexor Xr) 150 mg DAILY PO Last administered on 03/13/17 09: 27; Admin Dose 150 MG; Start 03/12/17 at 09:00 Atorvastatin Calcium 10 mg 10 mg QHS PO Last administered on 03/12/17 20:17; Admin Dose 10 MG; Start 03/12/17 at 21:00 Levofloxacin/ Dextrose 150 ml @ 100 mls/hr Q48H IVPB ; Start 03/14/17 at 09:00 Vancomycin HCl/ Sodium Chloride (Vancocin/NS) 150 ml @ 75 mls/hr Q24H IVPB Last administered on 03/13/17 11:24; Admin Dose 75 MLS/HR; Start 03/12/17 at 11 :00 Enoxaparin Sodium (Lovenox) 60 mg Q12 SC Last administered on 03/13/17 09:36; Admin Dose 60 MG; Start 03/13/17 at 09:00 Famotidine (Pepcid) 20 mg DAILY PO ; Start 03/14/17 at 09:00 Miscellaneous Information (*Rx Drug Level Order Reminder*) VANCOMYCIN TROUGH AT 1000 ONCE ONCE XX ; Start 03/14/17 at 10:00; Stop 03/14/17 at 10:01 Clonidine 0.1 mg 0.1 mg Q6H PRN PO ELEVATED BLOOD PRESSURE Last administered on 03/13/17 11:24; Admin Dose 0.1 MG; Start 03/13/17 at 11:30 Diltiazem HCl (Cardizem-D5W 125 Mg/125 ml Drip) 125 ml @ 5 mls/hr TITRATE IV Last administered on 03/13/17 15:40; Admin Dose 5 MLS/HR; Start 03/13/17 at 15: 00 Acetaminophen (Tylenol Tab) 500 mg PO ; Start 03/13/17 at 16:00 SARBJIT CHOWDHURY MD Mar 13, 2017 16:28
--- NOTE | 2017-03-13 16:33 | RADRPT ---
Vent Rate: 126 bpm RR Interval: 0 msec PA Interval: 0 msec QRS Duration: 126 msec QT Interval: 376 msec QTC Interval: 544 msec P-R-T [place]: 0 - -27 - 131 degrees Atrial fibrillation with rapid ventricular response Left ventricular hypertrophy with QRS widening Cannot rule out Septal infarct , age undetermined T wave abnormality, consider lateral ischemia or digitalis effect Abnormal ECG Electronically Signed By: Zach Clement [id number]
--- NOTE | 2017-03-13 16:46 | CONS ---
Date/Time of Note Date/Time of Note DATE: 03/13/17 TIME: 16:41 Consult Date/Type/Reason Admit Date/Time Mar 11, 2017 at 18:37 Initial Consult Date 03/13/17 Type of Consultation: CARDIOLOGY Ordering Provider: MELANI HASKINS MD Subjective Discussed with the staff and discussed with Dr. Yeboah Discussed with patient and daughter at the bedside. Even noted rhythm history was reviewed. Patient has converted into atrial fibrillation rapid ventricular response. Denies any palpitation chest pain to me. Has mild shortness of breath. He is seen in the ICU. OBJECTIVE: General: obese. no acute distress HEENT: NC/AT. pupils are equal. round. NECK: NO JVD. no stridor. CV: irregularly irregular. systolic murmur; no gallop or rubs. PULM: no wheezing or rhonchi. GI: SOFT,obese. NT, ND, no rebound or guarding Extremity: trace LE edema with erythema and warmth right leg. no clubbing. neuro: awake and alert, and oriented. . Psych: anxious but pleasant rectal: deferred : normal ECG NSR. LVH. LAFB. IVCD septal infarct ECG 03/13/17 AFIB RVR ECHO reviewed 1. Normal left ventricular systolic function. Normal left ventricular cavity size. Severe asymmetric septal hypertrophy. Ejection fraction is visually estimated at 60 %. Abnormal Diastolic Function. 2. There is mild enlargement of left atrium. 3. Mitral valve leaflets appear mildly thickened. Mild mitral annular calcification. Mild mitral valve regurgitation. 4. No hemodynamically significant aortic stenosis by doppler. Aortic cusps appear mildly calcified. Moderate aortic valve regurgitation. 5. Normal appearance of the tricuspid valve. Estimated peak PA systolic pressure 46 mmHg. There is mild tricuspid regurgitation. 6. Normal size and no respiratory collapse consistent with elevated right atrial pressure. 7. Normal pericardium with no significant pericardial effusion. Electronically Signed By: Objective Vital Signs Date Time Temp Pulse Resp B/P Pulse Ox O2 Delivery O2 Flow Rate FiO2 03/13/17 16:00 134 03/13/17 15:00 33 131/78 100 03/13/17 13:00 98.8 03/13/17 09:00 Room Air 03/13/17 09:00 2.0 03/12/17 20:01 21 Intake and Output 03/12/17 03/12/17 03/13/17 15:00 23:00 07:00 Intake Total 1265 ml 475 ml 100 ml Output Total 570 ml 580 ml 400 ml Balance 695 ml -105 ml -300 ml Results/Medications Result Diagram: 03/13/1735 03/13/17 0535 Results 24 hrs Laboratory Tests Test 03/13/17 05:35 White Blood Count 14.6 #H Red Blood Count 3.69 L Hemoglobin 11.3 L Hematocrit 35.2 L Mean Corpuscular Volume 95.4 Mean Corpuscular Hemoglobin 30.6 Mean Corpuscular Hemoglobin Concent 32.1 Red Cell Distribution Width 15.9 H Platelet Count 223 Mean Platelet Volume 11.5 H Neutrophils % 78.3 H Lymphocytes % 11.4 L Monocytes % 9.2 Eosinophils % 0.3 Basophils % 0.2 Nucleated Red Blood Cells % 0.0 Neutrophils # (Manual) 11.4 H Lymphocytes # 1.7 Monocytes # 1.4 H Eosinophils # 0.0 Basophils # 0.0 Nucleated Red Blood Cells # 0.0 Prothrombin Time 18.6 H Prothrombin Time Ratio 1.5 INR International Normalized Ratio 1.54 Sodium Level 140 Potassium Level 4.4 Chloride Level 107 Carbon Dioxide Level 24 Anion Gap 13 Blood Urea Nitrogen 17 # Creatinine 0.82 Glucose Level 112 Lactic Acid Level 1.5 Calcium Level 8.6 Magnesium Level 1.8 Total Bilirubin 0.2 Direct Bilirubin 0.00 Indirect Bilirubin 0.2 Aspartate Amino Transf (AST/SGOT) 37 Alanine Aminotransferase (ALT/SGPT) 30 Alkaline Phosphatase 78 B-Type Natriuretic Peptide 9120 H Total Protein 7.0 # Albumin 3.1 #L Globulin 3.90 H Albumin/Globulin Ratio 0.79 Thyroid Stimulating Hormone (TSH) 4.780 H Free Thyroxine 1.05 Digoxin Level < 0.4 L Medications Current Medications Amlodipine Besylate (Norvasc) 2.5 mg QAM PO Last administered on 03/13/17 09: 26; Admin Dose 2.5 MG; Start 03/12/17 at 09:00 Donepezil HCl (Aricept) 5 mg DAILY PO Last administered on 03/13/17 09:26; Admin Dose 5 MG; Start 03/12/17 at 09:00 Escitalopram Oxalate (Lexapro) 5 mg QPM PO Last administered on 03/12/17 20:18 ; Admin Dose 5 MG; Start 03/12/17 at 21:00 Folic Acid (Folic Acid) 1 mg DAILY PO Last administered on 03/13/17 09:26; Admin Dose 1 MG; Start 03/12/17 at 09:00 Pregabalin (Lyrica) 25 mg QHS PO Last administered on 03/12/17 20:17; Admin Dose 25 MG; Start 03/12/17 at 21:00 Venlafaxine HCl (Effexor Xr) 150 mg DAILY PO Last administered on 03/13/17 09: 27; Admin Dose 150 MG; Start 03/12/17 at 09:00 Atorvastatin Calcium 10 mg 10 mg QHS PO Last administered on 03/12/17 20:17; Admin Dose 10 MG; Start 03/12/17 at 21:00 Levofloxacin/ Dextrose 150 ml @ 100 mls/hr Q48H IVPB ; Start 03/14/17 at 09:00 Vancomycin HCl/ Sodium Chloride (Vancocin/NS) 150 ml @ 75 mls/hr Q24H IVPB Last administered on 03/13/17 11:24; Admin Dose 75 MLS/HR; Start 03/12/17 at 11 :00 Enoxaparin Sodium (Lovenox) 60 mg Q12 SC Last administered on 03/13/17 09:36; Admin Dose 60 MG; Start 03/13/17 at 09:00 Famotidine (Pepcid) 20 mg DAILY PO ; Start 03/14/17 at 09:00 Miscellaneous Information (*Rx Drug Level Order Reminder*) VANCOMYCIN TROUGH AT 1000 ONCE ONCE XX ; Start 03/14/17 at 10:00; Stop 03/14/17 at 10:01 Clonidine 0.1 mg 0.1 mg Q6H PRN PO ELEVATED BLOOD PRESSURE Last administered on 03/13/17 11:24; Admin Dose 0.1 MG; Start 03/13/17 at 11:30 Diltiazem HCl (Cardizem-D5W 125 Mg/125 ml Drip) 125 ml @ 5 mls/hr TITRATE IV Last administered on 03/13/17 15:40; Admin Dose 5 MLS/HR; Start 03/13/17 at 15: 00 Acetaminophen (Tylenol Tab) 500 mg PO ; Start 03/13/17 at 16:00 Assessment/Plan Chief Complaint/Hosp Course 1. 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 P afib with RVR 3. cellulitis LE and leukocytosis 4. HTN and HTN heart disease 5. hx CVA 6. hx brain aneurysm 7. anxiety/ depression 8. presyncope due to above 9. PULM HTN RECOMMENDATIONS: Lovenox for now abx as per IM PT WITH tachycardia off of betablocker. will resume low dose betablocker ECHO REVIEWED. will check TSH cont norvasc. CARDIZEM DRIP replace lytes prn . PPM is scheduled for next monday if cleared by ID by then. D/W daughter and R/ B/A D/W her and she agrees. Thank you for his referral will continue to follow along with you. JOSEF GÓMEZ MD [facility] Problems: JOSEF GÓMEZ MD Mar 13, 2017 16:46
[2017-03-13] MEDS ORDERED: FUROSEMIDE 20 MG INJ IV ONE (17:00)
[2017-03-13] MEDS ORDERED: POTASSIUM CHLORIDE (SR) 8 MEQ CAP PO ONE (17:00)
[2017-03-13] MEDS ORDERED: MAGNESIUM SULFATE 3 GM in SOD CHLORIDE 0.9% 100 ML IVPB ONE (17:00)
[2017-03-13] MEDS: ACETAMINOPHEN 500 MG TAB PO SCH (17:05)
[2017-03-13] MEDS: ESCITALOPRAM 10 MG TAB PO SCH (21:06)
[2017-03-13] MEDS: ATORVASTATIN 10 MG TAB PO SCH (21:06)
[2017-03-13] MEDS: PREGABALIN 25 MG CAP PO SCH (21:07)
[2017-03-14] VITALS (46 sets, daily range): BP systolic 106–156; BP diastolic 50–94; PULSE 66–104; RESP 15–31
--- NOTE | 2017-03-14 03:51 | CONS ---
DATE OF ADMISSION: 03/11/2017 DATE OF CONSULTATION: 03/13/2017 Infectious disease consultation REASON FOR CONSULTATION: Antibiotic management. HISTORY OF PRESENT ILLNESS: Lanette Roach is a pleasant obese 86-year-old, female, who was admitted on 03/11/2017 with atrial fibrillation and probable cellulitis. PROBLEMS: 1. History of atrial fibrillation for a number of years. 2. History of previous stroke. 3. Hypertension. 4. Depression. 5. Dyslipidemia. 6. Early Alzheimer disease. 7. Status post right total knee arthroplasty. 8. Bilateral cataract surgeries and lens implants. Acutely, the patient was brought in by her daughter and caregiver with chills and fever starting on the . She was thought to be warm to the touch and had some redness on her right lower extremity from her knee down to her ankle. The patient had a cough with sputum production of brownish coloration. She had no hemoptysis. No focal neurological abnormalities. The patient however did have atrial fibrillation and was put on a Cardizem drip. CT scan of the brain was done. She had persistent pauses in her beats and she was sent to the ICU. On admission, her white count was 20.4, H and H of 14.7 and 44, platelet count 312,000. On the , white count was 14.6, BUN and creatinine 17/0.82. Urine was negative for leukocyte esterase and for nitrites, only 3 white cells per high-powered field. Cathetered urine showed mixed gram-positive organisms. Blood cultures were negative x2. The patient was started on vancomycin and Levaquin. PAST MEDICAL HISTORY: Operations as outlined. FAMILY HISTORY: Noncontributory. SOCIAL HISTORY: She does not smoke, drink, or abuse drugs. ALLERGIES: NONE TO PENICILLIN, SULFA, OR FOODS. MEDICATION: Per chart. REVIEW OF SYSTEMS: As per HPI. PHYSICAL EXAMINATION: The patient is a markedly obese female, who is alert, responsive, speaking German, in no acute distress. Her daughter and caregiver are at her bedside. SKIN: Without generalized rash. HEENT: Within normal limits. NECK: Supple. Lymph nodes not palpable. CHEST: Decreased breath sounds at the bases. HEART: Without murmur or gallop. She has an irregularly irregular rhythm. ABDOMEN: Soft, obese, nontender, without organomegaly or splenomegaly or masses. EXTREMITIES: Right lower extremity with evidence of previous surgery. Without erythema or warmth at this time. Without cyanosis, clubbing, or edema. RECTAL/GENITAL: Exam is deferred. NEUROLOGICAL: No focal neurological abnormalities. IMPRESSION AND PLAN: Patient is an 86-year-old female who came in with probable cellulitis of her right lower extremity with resulted in an episode of paroxysmal atrial fibrillation. She is currently on vancomycin and Levaquin. We will continue her on this regimen for the present time. She is on a Cardizem drip and, I believe, is scheduled to have a pacemaker at some point in the next week. I will dictate my findings to Dr. Yeboah, hospitalist, I want thank him for asking me to see this eufemia lady in consultation. Dictated By: Pierre Parisi MD JD/feliberto/main /Document#: [id number]
[2017-03-14 06:18] LABS: BASOPHILS % 0.2 % (0.0-2.0); EOSINOPHILS # 0.2 10^3/ul (0.0-0.5); HEMATOCRIT 32.9 % (37.0-47.0); LYMPHOCYTES # 2.2 10^3/ul (0.8-2.9); LYMPHOCYTES % 17.9 % (15.0-51.0); MEAN CORPUSCULAR HEMOGLOBIN 31.2 pg (29.0-33.0); MEAN CORPUSCULAR HGB CONC 33.4 g/dl (32.0-37.0); MEAN CORPUSCULAR VOLUME 93.2 fl (82.0-101.0); MEAN PLATELET VOLUME 11.4 fl (7.4-10.4); MONOCYTE # 0.9 10^3/ul (0.3-0.9); MONOCYTES % 7.2 % (0.0-11.0); NEUTROPHILS % 72.2 % (39.0-77.0); PLATELET COUNT 216 10^3/UL (140-415); RED BLOOD COUNT 3.53 10^6/ul (4.20-5.40); RED CELL DISTRIBUTION WIDTH 15.5 % (11.5-14.5); WHITE BLOOD COUNT 12.1 10^3/ul (4.8-10.8)
[2017-03-14 07:07] LABS: ALBUMIN 3.1 g/dl (3.3-4.9); ALBUMIN/GLOBULIN RATIO 0.88; BILIRUBIN,INDIRECT 0.5 mg/dl (0-1.1); BILIRUBIN,TOTAL 0.5 mg/dl (0.2-1.3); CALCIUM 8.5 mg/dl (8.4-10.2); CREATININE 0.93 mg/dl (0.44-1.00); MAGNESIUM 2.9 mg/dl (1.7-2.5); POTASSIUM 4.1 mmol/L (3.5-5.1); TOTAL PROTEIN 6.6 g/dl (6.1-8.1)
[2017-03-14] MEDS: LEVOFLOXACIN 750MG/D5W (PMX) 150 ML IVPB SCH (08:53)
[2017-03-14] MEDS: DONEPEZIL 5 MG TAB PO SCH (08:53)
[2017-03-14] MEDS: VENLAFAXINE (XR) 75 MG CAP PO SCH (08:54)
[2017-03-14] MEDS: AMLODIPINE 2.5 MG TAB PO SCH (08:54)
[2017-03-14] MEDS: FOLIC ACID 1 MG TAB PO SCH (08:54)
[2017-03-14] MEDS: FAMOTIDINE 20 MG TAB PO SCH (08:54)
[2017-03-14] MEDS: ENOXAPARIN 60 MG/0.6 ML SYG SC SCH ×2 (08:57→20:50)
[2017-03-14] MEDS: ACETAMINOPHEN 500 MG TAB PO SCH ×2 (08:58→16:19)
[2017-03-14] MEDS: VANCOMYCIN 750 MG in SOD CHLORIDE 0.9% 150 ML IVPB SCH (12:02)
--- NOTE | 2017-03-14 13:04 | PN ---
DATE: 03/14/2017 SUBJECTIVE DATA: No acute changes. The patient is alert, denies pain, looks comfortable. No fevers. LABORATORY AND DIAGNOSTIC DATA: WBC 12.1, H and H 11 and 32.9, platelets 216; neutrophils 72.2. BUN 14, creatinine 0.93. ANTIMICROBIALS: 1. Vancomycin. 2. Levaquin. OBJECTIVE DATA: VITAL SIGNS: Temperature 98.6, pulse 70, respirations 15, blood pressure 106/54, saturation 99 on 2 L. GENERAL: This is a fragile, well-developed, elderly woman who is alert, in no distress. HEENT: Head atraumatic, normocephalic. Sclerae anicteric. Buccal mucosa dry. NECK: Supple. CHEST: Rise symmetrical. Breath sounds diminished at the bases. HEART: S1, S2. ABDOMEN: Soft, bowel sounds present. EXTREMITIES: With resolving edema and erythema bilateral lower extremities. SKIN: No jaundice. No cyanosis. ASSESSMENT: 1. Systemic inflammatory response syndrome status post fevers, chills. 2. Resolving bilateral lower extremity cellulitis. 3. Coronary artery disease with atrial fibrillation. 4. Hypertension. 5. History of cerebrovascular accident. PLAN: Patient remains hemodynamically stable. She is on appropriate antimicrobials. Cardiology on case. Plan for permanent pacemaker next week. Dictated By: Nan Jaramillo NP /feliberto/rohan /Document#: [id number]
[2017-03-14] MEDS ORDERED: VANCOMYCIN 750 MG in SOD CHLORIDE 0.9% 150 ML IVPB ONE (14:00)
--- NOTE | 2017-03-14 15:10 | CONS ---
Date/Time of Note Date/Time of Note DATE: 03/14/17 TIME: 15:07 Consult Date/Type/Reason Admit Date/Time Mar 11, 2017 at 18:37 Initial Consult Date 03/13/17 Type of Consultation: CARDIOLOGY Ordering Provider: MELANI HASKINS MD Subjective Discussed with the staff and discussed with Dr. Tinoco. rhythm was reviewed. pt remains in AFIB but HR is better and off of cardizem drip. Discussed with patient and daughter at the bedside. pt Denies any palpitation chest pain to me. Has mild shortness of breath. He is still in the ICU. OBJECTIVE: General: obese. no acute distress HEENT: NC/AT. pupils are equal. round. NECK: NO JVD. no stridor. CV: irregularly irregular. systolic murmur; no gallop or rubs. PULM: no wheezing or rhonchi. GI: SOFT,obese. NT, ND, no rebound or guarding Extremity: trace LE edema with almost complete resolution of erythema and warmth right leg. no clubbing. neuro: awake and alert, and oriented. . Psych: anxious but pleasant rectal: deferred : normal ECG NSR. LVH. LAFB. IVCD septal infarct ECG 03/13/17 AFIB RVR ECHO reviewed 1. Normal left ventricular systolic function. Normal left ventricular cavity size. Severe asymmetric septal hypertrophy. Ejection fraction is visually estimated at 60 %. Abnormal Diastolic Function. 2. There is mild enlargement of left atrium. 3. Mitral valve leaflets appear mildly thickened. Mild mitral annular calcification. Mild mitral valve regurgitation. 4. No hemodynamically significant aortic stenosis by doppler. Aortic cusps appear mildly calcified. Moderate aortic valve regurgitation. 5. Normal appearance of the tricuspid valve. Estimated peak PA systolic pressure 46 mmHg. There is mild tricuspid regurgitation. 6. Normal size and no respiratory collapse consistent with elevated right atrial pressure. 7. Normal pericardium with no significant pericardial effusion. Objective Vital Signs Date Time Temp Pulse Resp B/P Pulse Ox O2 Delivery O2 Flow Rate FiO2 03/14/17 13:00 84 17 129/70 97 Nasal Cannula 2.0 03/14/17 12:00 98.6 03/12/17 20:01 21 Intake and Output 03/13/17 03/13/17 03/14/17 15:00 23:00 07:00 Intake Total 850 ml 295 ml Output Total 1200 ml 900 ml 680 ml Balance -350 ml -605 ml -680 ml Results/Medications Result Diagram: 03/14/17 0541 03/14/17 0541 Results 24 hrs Laboratory Tests Test 03/14/17 05:41 03/14/17 10:36 White Blood Count 12.1 H Red Blood Count 3.53 L Hemoglobin 11.0 L Hematocrit 32.9 L Mean Corpuscular Volume 93.2 Mean Corpuscular Hemoglobin 31.2 Mean Corpuscular Hemoglobin Concent 33.4 Red Cell Distribution Width 15.5 H Platelet Count 216 Mean Platelet Volume 11.4 H Neutrophils % 72.2 Lymphocytes % 17.9 Monocytes % 7.2 Eosinophils % 2.0 Basophils % 0.2 Nucleated Red Blood Cells % 0.0 Neutrophils # (Manual) 8.7 H Lymphocytes # 2.2 Monocytes # 0.9 Eosinophils # 0.2 Basophils # 0.0 Nucleated Red Blood Cells # 0.0 Sodium Level 143 Potassium Level 4.1 Chloride Level 105 Carbon Dioxide Level 27 Anion Gap 15 Blood Urea Nitrogen 14 Creatinine 0.93 Glucose Level 94 Calcium Level 8.5 Magnesium Level 2.9 #H Total Bilirubin 0.5 Direct Bilirubin 0.00 Indirect Bilirubin 0.5 Aspartate Amino Transf (AST/SGOT) 31 Alanine Aminotransferase (ALT/SGPT) 36 Alkaline Phosphatase 85 B-Type Natriuretic Peptide 47488 H Total Protein 6.6 Albumin 3.1 L Globulin 3.50 H Albumin/Globulin Ratio 0.88 Vancomycin Level Trough 6.7 L Medications Current Medications Amlodipine Besylate (Norvasc) 2.5 mg QAM PO Last administered on 03/14/17 08: 54; Admin Dose 2.5 MG; Start 03/12/17 at 09:00 Donepezil HCl (Aricept) 5 mg DAILY PO Last administered on 03/14/17 08:53; Admin Dose 5 MG; Start 03/12/17 at 09:00 Escitalopram Oxalate (Lexapro) 5 mg QPM PO Last administered on 03/13/17 21:06 ; Admin Dose 5 MG; Start 03/12/17 at 21:00 Folic Acid (Folic Acid) 1 mg DAILY PO Last administered on 03/14/17 08:54; Admin Dose 1 MG; Start 03/12/17 at 09:00 Pregabalin (Lyrica) 25 mg QHS PO Last administered on 03/13/17 21:07; Admin Dose 25 MG; Start 03/12/17 at 21:00 Venlafaxine HCl (Effexor Xr) 150 mg DAILY PO Last administered on 03/14/17 08: 54; Admin Dose 150 MG; Start 03/12/17 at 09:00 Atorvastatin Calcium 10 mg 10 mg QHS PO Last administered on 03/13/17 21:06; Admin Dose 10 MG; Start 03/12/17 at 21:00 Levofloxacin/ Dextrose (Levaquin 750 Mg/ D5W 150 ml (Pmx)) 150 ml @ 100 mls/hr Q48H IVPB Last administered on 03/14/17 08:53; Admin Dose 100 MLS/HR; Start at 09:00 Enoxaparin Sodium (Lovenox) 60 mg Q12 SC Last administered on 03/14/17 08:57; Admin Dose 60 MG; Start 03/13/17 at 09:00 Famotidine (Pepcid) 20 mg DAILY PO Last administered on 03/14/17 08:54; Admin Dose 20 MG; Start 03/14/17 at 09:00 Clonidine 0.1 mg 0.1 mg Q6H PRN PO ELEVATED BLOOD PRESSURE Last administered on 03/13/17 11:24; Admin Dose 0.1 MG; Start 03/13/17 at 11:30 Diltiazem HCl (Cardizem-D5W 125 Mg/125 ml Drip) 125 ml @ 5 mls/hr TITRATE IV Last administered on 03/13/17 15:40; Admin Dose 5 MLS/HR; Start 03/13/17 at 15: 00 Acetaminophen (Tylenol Tab) 500 mg 09,16 PO Last administered on 03/14/17 08: 58; Admin Dose 500 MG; Start 03/13/17 at 16:00 Carvedilol 3.125 mg 3.125 mg BID PO Last administered on 03/14/17 08:54; Admin Dose 3.125 MG; Start 03/13/17 at 21:00 Vancomycin HCl 750 mg/Sodium Chloride 150 ml @ 75 mls/hr ONCE ONCE IVPB Last administered on 03/14/17 14:23; Admin Dose 75 MLS/HR; Start 03/14/17 at 14:00; Stop 03/14/17 at 15:59 Vancomycin HCl/ Sodium Chloride (Vancocin/NS) 250 ml @ 83.333 mls/ hr Q24H IVPB ; Start 03/15/17 at 12:00 Assessment/Plan Chief Complaint/Hosp Course 1. 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 P afib with RVR 3. cellulitis LE and leukocytosis 4. HTN and HTN heart disease 5. hx CVA 6. hx brain aneurysm 7. anxiety/ depression 8. presyncope due to above 9. PULM HTN RECOMMENDATIONS: cont Lovenox for now abx as per IM PT WITH tachycardia off of betablocker. will cont low dose betablocker and also add amiodarone low dose to try to keep in NSR ECHO REVIEWED. will check TSH cont norvasc. CARDIZEM DRIP replace lytes prn . PPM is scheduled for next monday ONCE infection has cleared up completely. D/ W daughter and R/B/A D/W her and she agrees. Thank you for his referral will continue to follow along with you. JOSEF GÓMEZ MD [facility] Problems: JOSEF GÓMEZ MD Mar 14, 2017 15:10
[2017-03-14] MEDS ORDERED: AMIODARONE 150MG/D5W BOLUS 100 ML IV ONE (15:30)
[2017-03-14] MEDS ORDERED: AMIODARONE 900 MG in DEXTROSE 5% 482 ML IV SCH (16:00)
--- NOTE | 2017-03-14 19:49 | PN ---
Date/Time of Note Date/Time of Note DATE: 03/14/17 TIME: 19:39 Assessment/Plan VTE Prophylaxis VTE Prophylaxis Intervention: LMWH Lines/Catheters IV Catheter Type (from Nrs): Peripheral IV Central line still needed: No Urinary Cath still in place: Yes Reason Cath still needed: other (indicate) (clinical state) Assessment/Plan Problems: (1) Fever Status: Resolved Qualifiers: Fever type: unspecified Qualified Code: R50.9 - Fever, unspecified fever cause (2) Cellulitis of right lower leg Status: Acute Comment: On IV antibiotic. Infection must be cleared prior to placement of pacemaker. (3) Paroxysmal atrial fibrillation Status: Chronic Comment: No issues at this time. Currently on LMWH. Will need to decide whether to continue anticoagulation with Coumadin at time of discharge. (4) Other intervertebral disc displacement, lumbar region Status: Chronic Comment: May be cause of lower extremity numbness. May also have some cervical arthritis causing upper extremity numbness. Brain imaging done upon admission without new lesions. 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 Continue antidepressants (6) Dropped heart beats Status: Acute Comment: Sick sinus syndrome with symptomatic tachy gogo syndrome. Scheduled for pacemaker placement next. Monday Subjective 24 Hr Interval Summary Free Text/Dictation Patient without chest pain. Complains of some mild numbness left upper and lower extremity. Exam/Review of Systems Vital Signs Vitals Vital Signs Date Time Temp Pulse Resp B/P Pulse Ox O2 Delivery O2 Flow Rate FiO2 03/14/17 18:00 66 17 135/60 100 Nasal Cannula 2.0 03/14/17 16:00 98.0 03/12/17 20:01 21 Intake and Output 03/13/17 03/13/17 03/14/17 15:00 23:00 07:00 Intake Total 850 ml 295 ml Output Total 1200 ml 900 ml 680 ml Balance -350 ml -605 ml -680 ml Exam Constitutional: alert, oriented, well developed Head: normocephalic Eyes: EOMI, PERRL, nl conjunctiva, nl sclera Neck: non-tender, supple Respiratory: clear to auscultation, normal air movement Cardiovascular: irregular rhythm Gastrointestinal: non-tender, soft Musculoskeletal: nl extremities to inspection, other (erythema resolved right leg) Extremities: normal pulses Neurological: nl mental status, nl speech, nl strength Skin: nl turgor Results Labs reviewed Result Diagram: 03/14/17 0541 03/14/17 0541 Results 24 hrs Laboratory Tests Test 03/14/17 05:41 03/14/17 10:36 White Blood Count 12.1 H Red Blood Count 3.53 L Hemoglobin 11.0 L Hematocrit 32.9 L Mean Corpuscular Volume 93.2 Mean Corpuscular Hemoglobin 31.2 Mean Corpuscular Hemoglobin Concent 33.4 Red Cell Distribution Width 15.5 H Platelet Count 216 Mean Platelet Volume 11.4 H Neutrophils % 72.2 Lymphocytes % 17.9 Monocytes % 7.2 Eosinophils % 2.0 Basophils % 0.2 Nucleated Red Blood Cells % 0.0 Neutrophils # (Manual) 8.7 H Lymphocytes # 2.2 Monocytes # 0.9 Eosinophils # 0.2 Basophils # 0.0 Nucleated Red Blood Cells # 0.0 Sodium Level 143 Potassium Level 4.1 Chloride Level 105 Carbon Dioxide Level 27 Anion Gap 15 Blood Urea Nitrogen 14 Creatinine 0.93 Glucose Level 94 Calcium Level 8.5 Magnesium Level 2.9 #H Total Bilirubin 0.5 Direct Bilirubin 0.00 Indirect Bilirubin 0.5 Aspartate Amino Transf (AST/SGOT) 31 Alanine Aminotransferase (ALT/SGPT) 36 Alkaline Phosphatase 85 B-Type Natriuretic Peptide 97494 H Total Protein 6.6 Albumin 3.1 L Globulin 3.50 H Albumin/Globulin Ratio 0.88 Vancomycin Level Trough 6.7 L Medications Medications Current Medications Amlodipine Besylate (Norvasc) 2.5 mg QAM PO Last administered on 03/14/17 08: 54; Admin Dose 2.5 MG; Start 03/12/17 at 09:00 Donepezil HCl (Aricept) 5 mg DAILY PO Last administered on 03/14/17 08:53; Admin Dose 5 MG; Start 03/12/17 at 09:00 Escitalopram Oxalate (Lexapro) 5 mg QPM PO Last administered on 03/13/17 21:06 ; Admin Dose 5 MG; Start 03/12/17 at 21:00 Folic Acid (Folic Acid) 1 mg DAILY PO Last administered on 03/14/17 08:54; Admin Dose 1 MG; Start 03/12/17 at 09:00 Pregabalin (Lyrica) 25 mg QHS PO Last administered on 03/13/17 21:07; Admin Dose 25 MG; Start 03/12/17 at 21:00 Venlafaxine HCl (Effexor Xr) 150 mg DAILY PO Last administered on 03/14/17 08: 54; Admin Dose 150 MG; Start 03/12/17 at 09:00 Atorvastatin Calcium 10 mg 10 mg QHS PO Last administered on 03/13/17 21:06; Admin Dose 10 MG; Start 03/12/17 at 21:00 Levofloxacin/ Dextrose (Levaquin 750 Mg/ D5W 150 ml (Pmx)) 150 ml @ 100 mls/hr Q48H IVPB Last administered on 03/14/17 08:53; Admin Dose 100 MLS/HR; Start at 09:00 Enoxaparin Sodium (Lovenox) 60 mg Q12 SC Last administered on 03/14/17 08:57; Admin Dose 60 MG; Start 03/13/17 at 09:00 Famotidine (Pepcid) 20 mg DAILY PO Last administered on 03/14/17 08:54; Admin Dose 20 MG; Start 03/14/17 at 09:00 Clonidine 0.1 mg 0.1 mg Q6H PRN PO ELEVATED BLOOD PRESSURE Last administered on 03/13/17 11:24; Admin Dose 0.1 MG; Start 03/13/17 at 11:30 Diltiazem HCl (Cardizem-D5W 125 Mg/125 ml Drip) 125 ml @ 5 mls/hr TITRATE IV Last administered on 03/13/17 15:40; Admin Dose 5 MLS/HR; Start 03/13/17 at 15: 00 Acetaminophen (Tylenol Tab) 500 mg 09,16 PO Last administered on 03/14/17 16: 19; Admin Dose 500 MG; Start 03/13/17 at 16:00 Carvedilol 3.125 mg 3.125 mg BID PO Last administered on 03/14/17 08:54; Admin Dose 3.125 MG; Start 03/13/17 at 21:00 Vancomycin HCl 1.5 gm/Sodium Chloride 250 ml @ 83.333 mls/ hr Q24H IVPB ; Start 03/15/17 at 12:00 Amiodarone HCl/ Dextrose (Cordarone Iv/ D5W) 500 ml @ 0 mls/hr Q0M IV Last administered on 03/14/17t 16:40; Admin Dose 16.7 MLS/HR; Start 03/14/17 at 16:00 ; Stop 03/15/17 at 15:59 ALETA MAUGIRE MD Mar 14, 2017 19:49
[2017-03-14] MEDS: PREGABALIN 25 MG CAP PO SCH (20:51)
[2017-03-14] MEDS: ATORVASTATIN 10 MG TAB PO SCH (20:52)
[2017-03-14] MEDS: ESCITALOPRAM 10 MG TAB PO SCH (20:52)
[2017-03-15] VITALS (17 sets, daily range): BP systolic 119–179; BP diastolic 66–117; PULSE 73–107; RESP 18–38
[2017-03-15] MEDS: NAMENDA 28 MG PO SCH ×2 (01:00→21:00)
[2017-03-15 06:32] LABS: WHITE BLOOD COUNT 12.3 10^3/ul (4.8-10.8)
[2017-03-15 06:33] LABS: BASOPHILS % 0.3 % (0.0-2.0); EOSINOPHILS # 0.3 10^3/ul (0.0-0.5); EOSINOPHILS % 2.8 % (0.0-7.0); HEMATOCRIT 35.2 % (37.0-47.0); HEMOGLOBIN 11.6 g/dl (12.0-16.0); LYMPHOCYTES # 1.8 10^3/ul (0.8-2.9); LYMPHOCYTES % 14.6 % (15.0-51.0); MEAN CORPUSCULAR HEMOGLOBIN 30.5 pg (29.0-33.0); MEAN CORPUSCULAR VOLUME 92.6 fl (82.0-101.0); MEAN PLATELET VOLUME 11.3 fl (7.4-10.4); MONOCYTE # 0.9 10^3/ul (0.3-0.9); MONOCYTES % 7.7 % (0.0-11.0); NEUTROPHILS % 73.7 % (39.0-77.0); PLATELET COUNT 264 10^3/UL (140-415); RED CELL DISTRIBUTION WIDTH 15.6 % (11.5-14.5)
[2017-03-15 07:08] LABS: ALBUMIN 3.1 g/dl (3.3-4.9); ALBUMIN/GLOBULIN RATIO 0.77; BILIRUBIN,INDIRECT 0.4 mg/dl (0-1.1); BILIRUBIN,TOTAL 0.4 mg/dl (0.2-1.3); CALCIUM 8.9 mg/dl (8.4-10.2); CREATININE 0.92 mg/dl (0.44-1.00); MAGNESIUM 2.3 mg/dl (1.7-2.5); POTASSIUM 4.1 mmol/L (3.5-5.1); TOTAL PROTEIN 7.1 g/dl (6.1-8.1)
--- NOTE | 2017-03-15 07:53 | CONS ---
Date/Time of Note Date/Time of Note DATE: 03/15/17 TIME: 07:49 Consult Date/Type/Reason Admit Date/Time Mar 11, 2017 at 18:37 Initial Consult Date 03/13/17 Type of Consultation: CARDIOLOGY Ordering Provider: MELANI HASKINS MD Subjective CARDIOLOGY FOLLOW UP NOTE: Discussed with the staff and discussed and rhythm was reviewed. pt remains in AFIB but HR is better Discussed with patient and daughter at the bedside. pt has c/o left sided mild chest pain. she could not explain it well it is on and off. daughter states pt has been very anxious and pt states she has got worried after "her conversation about Howie. " pt Denies any palpitation to me. Has mild shortness of breath. He is still in the ICU. OBJECTIVE: General: obese. no acute distress HEENT: NC/AT. pupils are equal. round. NECK: NO JVD. no stridor. CV: irregularly irregular. systolic murmur; no gallop or rubs. PULM: no wheezing or rhonchi. GI: SOFT,obese. NT, ND, no rebound or guarding Extremity: trace LE edema with almost complete resolution of erythema and warmth right leg. no clubbing. neuro: awake and alert, and oriented. . Psych: anxious but pleasant rectal: deferred : normal ECG NSR. LVH. LAFB. IVCD septal infarct ECG 03/13/17 AFIB RVR ECHO reviewed 1. Normal left ventricular systolic function. Normal left ventricular cavity size. Severe asymmetric septal hypertrophy. Ejection fraction is visually estimated at 60 %. Abnormal Diastolic Function. 2. There is mild enlargement of left atrium. 3. Mitral valve leaflets appear mildly thickened. Mild mitral annular calcification. Mild mitral valve regurgitation. 4. No hemodynamically significant aortic stenosis by doppler. Aortic cusps appear mildly calcified. Moderate aortic valve regurgitation. 5. Normal appearance of the tricuspid valve. Estimated peak PA systolic pressure 46 mmHg. There is mild tricuspid regurgitation. 6. Normal size and no respiratory collapse consistent with elevated right atrial pressure. 7. Normal pericardium with no significant pericardial effusion. Objective Vital Signs Date Time Temp Pulse Resp B/P Pulse Ox O2 Delivery O2 Flow Rate FiO2 03/15/17 07:00 107 25 145/117 97 03/15/17 06:00 Nasal Cannula 2.0 03/15/17 04:00 97.8 03/12/17 20:01 21 Intake and Output 03/14/17 03/14/17 03/15/17 15:00 23:00 07:00 Intake Total 660 ml 656.9 ml 16.7 ml Output Total 805 ml 1685 ml 140 ml Balance -145 ml -1028.1 ml -123.3 ml Results/Medications Result Diagram: 03/15/17 0545 03/15/17 0545 Results 24 hrs Laboratory Tests Test 03/14/17 10:36 03/15/17 05:45 Vancomycin Level Trough 6.7 L White Blood Count 12.3 H Red Blood Count 3.80 L Hemoglobin 11.6 L Hematocrit 35.2 L Mean Corpuscular Volume 92.6 Mean Corpuscular Hemoglobin 30.5 Mean Corpuscular Hemoglobin Concent 33.0 Red Cell Distribution Width 15.6 H Platelet Count 264 # Mean Platelet Volume 11.3 H Neutrophils % 73.7 Lymphocytes % 14.6 L Monocytes % 7.7 Eosinophils % 2.8 Basophils % 0.3 Nucleated Red Blood Cells % 0.0 Neutrophils # (Manual) 9.0 H Lymphocytes # 1.8 Monocytes # 0.9 Eosinophils # 0.3 Basophils # 0.0 Nucleated Red Blood Cells # 0.0 Sodium Level 142 Potassium Level 4.1 Chloride Level 103 Carbon Dioxide Level 29 Anion Gap 14 Blood Urea Nitrogen 16 Creatinine 0.92 Glucose Level 111 Calcium Level 8.9 Magnesium Level 2.3 Total Bilirubin 0.4 Direct Bilirubin 0.00 Indirect Bilirubin 0.4 Aspartate Amino Transf (AST/SGOT) 35 Alanine Aminotransferase (ALT/SGPT) 45 Alkaline Phosphatase 91 B-Type Natriuretic Peptide 55528 H Total Protein 7.1 Albumin 3.1 L Globulin 4.00 H Albumin/Globulin Ratio 0.77 Medications Current Medications Amlodipine Besylate (Norvasc) 2.5 mg QAM PO Last administered on 03/14/17 08: 54; Admin Dose 2.5 MG; Start 03/12/17 at 09:00 Donepezil HCl (Aricept) 5 mg DAILY PO Last administered on 03/14/17 08:53; Admin Dose 5 MG; Start 03/12/17 at 09:00 Escitalopram Oxalate (Lexapro) 5 mg QPM PO Last administered on 03/14/17 20:52 ; Admin Dose 5 MG; Start 03/12/17 at 21:00 Folic Acid (Folic Acid) 1 mg DAILY PO Last administered on 03/14/17 08:54; Admin Dose 1 MG; Start 03/12/17 at 09:00 Pregabalin (Lyrica) 25 mg QHS PO Last administered on 03/14/17 20:51; Admin Dose 25 MG; Start 03/12/17 at 21:00 Venlafaxine HCl (Effexor Xr) 150 mg DAILY PO Last administered on 03/14/17 08: 54; Admin Dose 150 MG; Start 03/12/17 at 09:00 Atorvastatin Calcium 10 mg 10 mg QHS PO Last administered on 03/14/17 20:52; Admin Dose 10 MG; Start 03/12/17 at 21:00 Levofloxacin/ Dextrose (Levaquin 750 Mg/ D5W 150 ml (Pmx)) 150 ml @ 100 mls/hr Q48H IVPB Last administered on 03/14/17 08:53; Admin Dose 100 MLS/HR; Start at 09:00 Enoxaparin Sodium (Lovenox) 60 mg Q12 SC Last administered on 03/14/17 20:50; Admin Dose 60 MG; Start 03/13/17 at 09:00 Famotidine (Pepcid) 20 mg DAILY PO Last administered on 03/14/17 08:54; Admin Dose 20 MG; Start 03/14/17 at 09:00 Clonidine 0.1 mg 0.1 mg Q6H PRN PO ELEVATED BLOOD PRESSURE Last administered on 03/15/17 07:33; Admin Dose 0.1 MG; Start 03/13/17 at 11:30 Diltiazem HCl (Cardizem-D5W 125 Mg/125 ml Drip) 125 ml @ 5 mls/hr TITRATE IV Last administered on 03/13/17 15:40; Admin Dose 5 MLS/HR; Start 03/13/17 at 15: 00 Acetaminophen 500 mg 500 mg 09,16 PO Last administered on 03/14/17 16:19; Admin Dose 500 MG; Start 03/13/17 at 16:00 Vancomycin HCl/ Sodium Chloride (Vancocin/NS) 250 ml @ 83.333 mls/ hr Q24H IVPB ; Start 03/15/17 at 12:00 Patient Own Medication 1 ea 1 ea QHS PO Last administered on 03/15/17t 01:00; Admin Dose 1 EA; Start 03/15/17 at 01:00 Amiodarone HCl/ Dextrose (Cordarone Iv/ D5W) 500 ml @ 0 mls/hr Q0M IV ; Start at 07:43; Status UNV Carvedilol (Coreg) 6.25 mg BID PO ; Start 03/15/17 at 09:00; Status UNV Diltiazem HCl (Cardizem Iv) 5 mg Q1H PRN IV AFIB WITH HR > 100; Start 03/15/17 at 08:00; Status UNV Assessment/Plan Chief Complaint/Hosp Course 1. 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 P afib with RVR 3. cellulitis LE and leukocytosis 4. HTN and HTN heart disease 5. hx CVA 6. hx brain aneurysm 7. anxiety/ depression 8. presyncope due to above 9. PULM HTN 10. chest pain atypical RECOMMENDATIONS: cont Lovenox for now abx as per IM will cont amiodarone drip and inc coreg to control HR and BP better. ECHO REVIEWED. cont norvasc. CARDIZEM IV prn replace lytes prn . R/O [place] with serial cardiac enzymes. lexiscan tomorrow if negative cardiac enzymes. PPM is scheduled for next monday ONCE infection has cleared up completely. D/ W daughter and R/B/A D/W her and she agrees. Thank you for his referral will continue to follow along with you. JOSEF GÓMEZ MD [facility] Problems: JOSEF GÓMEZ MD Mar 15, 2017 07:53
[2017-03-15] MEDS ORDERED: FUROSEMIDE 20 MG INJ IV ONE (08:00)
[2017-03-15] MEDS ORDERED: DILTIAZEM 25 MG INJ IV PRN (08:00)
[2017-03-15] MEDS: LORAZEPAM 2 MG INJ IV ONE ×2 (08:00→08:48)
[2017-03-15] MEDS: VENLAFAXINE (XR) 75 MG CAP PO SCH (08:49)
[2017-03-15] MEDS: FAMOTIDINE 20 MG TAB PO SCH (08:49)
[2017-03-15] MEDS: FOLIC ACID 1 MG TAB PO SCH (08:49)
[2017-03-15] MEDS: DONEPEZIL 5 MG TAB PO SCH (08:49)
[2017-03-15] MEDS: AMLODIPINE 2.5 MG TAB PO SCH (08:50)
[2017-03-15] MEDS: ENOXAPARIN 60 MG/0.6 ML SYG SC SCH ×2 (08:51→22:38)
[2017-03-15] MEDS: ACETAMINOPHEN 500 MG TAB PO SCH ×2 (08:51→18:45)
[2017-03-15] MEDS: AMIODARONE 900 MG in DEXTROSE 5% 482 ML IV SCH ×2 (08:52→22:39)
[2017-03-15] MEDS: VANCOMYCIN 1.5 GM in SOD CHLORIDE 0.9% 250 ML IVPB SCH (12:08)
[2017-03-15] MEDS: ACYCLOVIR 400 MG TAB PO SCH ×2 (13:00→22:12)
--- NOTE | 2017-03-15 13:00 | PN ---
DATE: 03/15/2017 SUBJECTIVE DATA: No acute changes. The patient is alert, feels better, looks comfortable. She is working with physical therapy. Family at bedside. OBJECTIVE DATA: Temperature 97.8, pulse 95, respirations 22, blood pressure 121/99, saturation 98 on 2 L. LABORATORY AND DIAGNOSTIC DATA: WBC 12.3, H and H 11.6 AND 35.2, platelets 264,000. Neutrophils 73.7, no bands. BUN 16, creatinine 0.92. MICROBIOLOGY: All cultures remain negative. ANTIMICROBIALS: The patient is on vancomycin and Levaquin. PHYSICAL EXAMINATION: GENERAL: Fragile, well-developed, elderly woman who is alert, in no distress. HEENT: Head atraumatic, normocephalic. Sclerae anicteric. Buccal mucosa pink, moist. The patient has vesicular lesions on her upper lip. NECK: Supple. CHEST: Rise symmetrical. Breath sounds clear. HEART: S1, S2. ABDOMEN: Soft, bowel sounds present. EXTREMITIES: Without cyanosis, edema. ASSESSMENT: 1. Systemic inflammatory response syndrome on admission, status post fevers and chills. 2. Resolved cellulitis of bilateral lower extremities. 3. Upper lip herpetic lesions. 4. Hypertension. 5. Coronary artery disease. 6. Atrial fibrillation. 7. History of cerebrovascular accident. PLAN: The patient remains stable. We are going to add acyclovir to the regimen. Continue her on current antibiotics. Follow recommendations of consultants. Pending pacemaker placement. Dictated By: Nan Jaramillo NP /feliberto/sangita /Document#: [id number]
--- NOTE | 2017-03-15 13:22 | RADRPT ---
Vent Rate: 105 bpm RR Interval: 0 msec HI Interval: 0 msec QRS Duration: 132 msec QT Interval: 374 msec QTC Interval: 494 msec P-R-T [place]: 0 - -32 - 133 degrees Atrial flutter with variable AV block Left axis deviation Left ventricular hypertrophy with QRS widening and repolarization abnormality Cannot rule out Septal infarct , age undetermined Abnormal ECG Electronically Signed By: Zach Clement [id number]
[2017-03-15 13:30] LABS: TROPONIN-I 0.019 ng/ml (0.00-0.12)
--- NOTE | 2017-03-15 18:20 | PN ---
Date/Time of Note Date/Time of Note DATE: 03/15/17 TIME: 18:04 Patient seen and examined at 11:15am. Plan discussed with patient and daughter. Assessment/Plan VTE Prophylaxis VTE Prophylaxis Intervention: LMWH Lines/Catheters IV Catheter Type (from Nrsg): Peripheral IV Central line still needed: Yes Urinary Cath still in place: No Assessment/Plan Problems: (1) Cellulitis of right lower leg Status: Acute Comment: Receiving IV antibiotics. management per ID (2) Essential (primary) hypertension Status: Chronic Comment: Fair control (3) Paroxysmal atrial fibrillation Status: Chronic Comment: Episode of RVR overnight. Now appears rate controlled. 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 Will add Temazepam at night to aid with sleep. May need to change to alprazolam. (5) Dropped heart beats Status: Acute Comment: Sick sinus syndrome with symptomatic tachy gogo syndrome. Scheduled for pacemaker placement next Monday once infection fully resolved Assessment/Plan Stable for transfer to Telemetry. Will d/c taylor. Subjective 24 Hr Interval Summary Free Text/Dictation Over night patient with extreme anxiety and developed RVR atrial fibrillation. Also complained of chest pain that has since subsided after patient was seen by Dr. Pérez (cardiology) Currently feeling better. Walked with PT today. Exam/Review of Systems Vital Signs Vitals Vital Signs Date Time Temp Pulse Resp B/P Pulse Ox O2 Delivery O2 Flow Rate FiO2 03/15/17 16:10 96 03/15/17 16:00 98.6 19 144/85 93 03/15/17 12:40 2.0 03/15/17 10:00 Nasal Cannula 03/12/17 20:01 21 Intake and Output 03/14/17 03/14/17 03/15/17 15:00 23:00 07:00 Intake Total 660 ml 656.9 ml 240.28 ml Output Total 805 ml 1685 ml 1815 ml Balance -145 ml -1028.1 ml -1574.72 ml Exam Constitutional: alert, oriented, other (sitting in chair), well developed Head: normocephalic Eyes: EOMI, PERRL, nl conjunctiva Neck: supple Respiratory: clear to auscultation Cardiovascular: irregular rhythm Genitourinary - Female: other (Taylor to gravity) Extremities: edema (none), normal pulses, other (erythema resolved) Results Result Diagram: 03/15/17 0545 03/15/17 0545 Results 24 hrs Laboratory Tests Test 03/15/17 05:45 03/15/17 12:00 White Blood Count 12.3 H Red Blood Count 3.80 L Hemoglobin 11.6 L Hematocrit 35.2 L Mean Corpuscular Volume 92.6 Mean Corpuscular Hemoglobin 30.5 Mean Corpuscular Hemoglobin Concent 33.0 Red Cell Distribution Width 15.6 H Platelet Count 264 # Mean Platelet Volume 11.3 H Neutrophils % 73.7 Lymphocytes % 14.6 L Monocytes % 7.7 Eosinophils % 2.8 Basophils % 0.3 Nucleated Red Blood Cells % 0.0 Neutrophils # (Manual) 9.0 H Lymphocytes # 1.8 Monocytes # 0.9 Eosinophils # 0.3 Basophils # 0.0 Nucleated Red Blood Cells # 0.0 Sodium Level 142 Potassium Level 4.1 Chloride Level 103 Carbon Dioxide Level 29 Anion Gap 14 Blood Urea Nitrogen 16 Creatinine 0.92 Glucose Level 111 Calcium Level 8.9 Magnesium Level 2.3 Total Bilirubin 0.4 Direct Bilirubin 0.00 Indirect Bilirubin 0.4 Aspartate Amino Transf (AST/SGOT) 35 Alanine Aminotransferase (ALT/SGPT) 45 Alkaline Phosphatase 91 Troponin I 0.031 0.019 B-Type Natriuretic Peptide 56415 H Total Protein 7.1 Albumin 3.1 L Globulin 4.00 H Albumin/Globulin Ratio 0.77 Creatine Kinase 22 L Creatine Kinase Index 4.5 Creatinine Kinase MB (Mass) 1.00 Medications Medications Current Medications Amlodipine Besylate (Norvasc) 2.5 mg QAM PO Last administered on 03/15/17 08: 50; Admin Dose 2.5 MG; Start 03/12/17 at 09:00 Donepezil HCl (Aricept) 5 mg DAILY PO Last administered on 03/15/17 08:49; Admin Dose 5 MG; Start 03/12/17 at 09:00 Escitalopram Oxalate (Lexapro) 5 mg QPM PO Last administered on 03/14/17 20:52 ; Admin Dose 5 MG; Start 03/12/17 at 21:00 Folic Acid (Folic Acid) 1 mg DAILY PO Last administered on 03/15/17 08:49; Admin Dose 1 MG; Start 03/12/17 at 09:00 Pregabalin (Lyrica) 25 mg QHS PO Last administered on 03/14/17 20:51; Admin Dose 25 MG; Start 03/12/17 at 21:00 Venlafaxine HCl (Effexor Xr) 150 mg DAILY PO Last administered on 03/15/17 08: 49; Admin Dose 150 MG; Start 03/12/17 at 09:00 Atorvastatin Calcium 10 mg 10 mg QHS PO Last administered on 03/14/17 20:52; Admin Dose 10 MG; Start 03/12/17 at 21:00 Levofloxacin/ Dextrose (Levaquin 750 Mg/ D5W 150 ml (Pmx)) 150 ml @ 100 mls/hr Q48H IVPB Last administered on 03/14/17 08:53; Admin Dose 100 MLS/HR; Start at 09:00 Enoxaparin Sodium (Lovenox) 60 mg Q12 SC Last administered on 03/15/17 08:51; Admin Dose 60 MG; Start 03/13/17 at 09:00 Famotidine (Pepcid) 20 mg DAILY PO Last administered on 03/15/17 08:49; Admin Dose 20 MG; Start 03/14/17 at 09:00 Clonidine 0.1 mg 0.1 mg Q6H PRN PO ELEVATED BLOOD PRESSURE Last administered on 03/15/17 07:33; Admin Dose 0.1 MG; Start 03/13/17 at 11:30 Diltiazem HCl (Cardizem-D5W 125 Mg/125 ml Drip) 125 ml @ 5 mls/hr TITRATE IV Last administered on 03/13/17 15:40; Admin Dose 5 MLS/HR; Start 03/13/17 at 15: 00 Acetaminophen 500 mg 500 mg 09,16 PO Last administered on 03/15/17 08:51; Admin Dose 500 MG; Start 03/13/17 at 16:00 Vancomycin HCl/ Sodium Chloride (Vancocin/NS) 250 ml @ 83.333 mls/ hr Q24H IVPB Last administered on 03/15/17 12:08; Admin Dose 83.333 MLS/HR; Start at 12:00 Patient Own Medication 1 ea 1 ea QHS PO Last administered on 03/15/17 01:00; Admin Dose 1 EA; Start 03/15/17 at 01:00 Amiodarone HCl/ Dextrose (Cordarone Iv/ D5W) 500 ml @ 0 mls/hr Q0M IV Last administered on 03/15/17 08:52; Admin Dose 0.5 MLS/HR; Start 03/15/17 at 07:43 Carvedilol (Coreg) 6.25 mg BID PO Last administered on 03/15/17 08:49; Admin Dose 6.25 MG; Start 03/15/17 at 09:00 Diltiazem HCl (Cardizem Iv) 5 mg Q1H PRN IV AFIB WITH HR > 100; Start 03/15/17 at 08:00 Acyclovir (Zovirax) 400 mg TID PO ; Start 03/15/17 at 13:00 ALETA MAGUIRE MD Mar 15, 2017 18:15
[2017-03-15] MEDS: ESCITALOPRAM 10 MG TAB PO SCH (22:12)
[2017-03-15] MEDS: ATORVASTATIN 10 MG TAB PO SCH (22:12)
[2017-03-15] MEDS: PREGABALIN 25 MG CAP PO SCH (22:13)
[2017-03-15] MEDS: ALPRAZOLAM 0.25 MG TAB PO SCH (22:13)
[2017-03-16] VITALS (12 sets, daily range): BP systolic 126–179; BP diastolic 66–82; PULSE 72–99; RESP 18–20
[2017-03-16] MEDS: LEVOFLOXACIN 750MG/D5W (PMX) 150 ML IVPB SCH (07:58)
[2017-03-16] MEDS ORDERED: REGADENOSON 0.4 MG/5 ML SYG ONE (08:31)
[2017-03-16] MEDS ORDERED: DILTIAZEM 25 MG INJ IV PRN (09:00)
--- NOTE | 2017-03-16 10:11 | CONS ---
Date/Time of Note Date/Time of Note DATE: 03/16/17 TIME: 10:09 Consult Date/Type/Reason Admit Date/Time Mar 11, 2017 at 18:37 Initial Consult Date 03/13/17 Type of Consultation: CARDIOLOGY Ordering Provider: MELANI HASKINS MD Subjective CARDIOLOGY FOLLOW UP NOTE: Discussed with the staff and discussed and rhythm was reviewed. pt remains in AFIB Discussed with patient and daughter at the bedside. pt has no more eft sided mild chest pain. pt Denies any palpitation to me. Has mild shortness of breath. OBJECTIVE: General: obese. no acute distress HEENT: NC/AT. pupils are equal. round. NECK: NO JVD. no stridor. CV: irregularly irregular. systolic murmur; no gallop or rubs. PULM: no wheezing or rhonchi. GI: SOFT,obese. NT, ND, no rebound or guarding Extremity: trace LE edema with almost complete resolution of erythema and warmth right leg. no clubbing. neuro: awake and alert, and oriented. . Psych: anxious but pleasant rectal: deferred : normal ECG NSR. LVH. LAFB. IVCD septal infarct ECG 03/13/17 AFIB RVR ECHO reviewed 1. Normal left ventricular systolic function. Normal left ventricular cavity size. Severe asymmetric septal hypertrophy. Ejection fraction is visually estimated at 60 %. Abnormal Diastolic Function. 2. There is mild enlargement of left atrium. 3. Mitral valve leaflets appear mildly thickened. Mild mitral annular calcification. Mild mitral valve regurgitation. 4. No hemodynamically significant aortic stenosis by doppler. Aortic cusps appear mildly calcified. Moderate aortic valve regurgitation. 5. Normal appearance of the tricuspid valve. Estimated peak PA systolic pressure 46 mmHg. There is mild tricuspid regurgitation. 6. Normal size and no respiratory collapse consistent with elevated right atrial pressure. 7. Normal pericardium with no significant pericardial effusion. Objective Vital Signs Date Time Temp Pulse Resp B/P Pulse Ox O2 Delivery O2 Flow Rate FiO2 03/16/17 08:38 90 03/16/17 07:52 97.6 20 179/78 95 03/15/17 23:56 2.0 03/15/17 20:00 Nasal Cannula 03/12/17 20:01 21 Intake and Output 03/15/17 03/15/17 03/16/17 15:00 23:00 07:00 Intake Total 400 ml 500 ml 75 ml Output Total 1450 ml 550 ml Balance -1050 ml 500 ml -475 ml Results/Medications Result Diagram: 03/15/17 0545 03/15/17 0545 Results 24 hrs Laboratory Tests Test 03/15/17 12:00 Creatine Kinase 22 L Creatine Kinase Index 4.5 Creatinine Kinase MB (Mass) 1.00 Troponin I 0.019 Medications Current Medications Amlodipine Besylate (Norvasc) 2.5 mg QAM PO Last administered on 03/15/17 08: 50; Admin Dose 2.5 MG; Start 03/12/17 at 09:00 Donepezil HCl (Aricept) 5 mg DAILY PO Last administered on 03/15/17 08:49; Admin Dose 5 MG; Start 03/12/17 at 09:00 Escitalopram Oxalate (Lexapro) 5 mg QPM PO Last administered on 03/15/17 22:12 ; Admin Dose 5 MG; Start 03/12/17 at 21:00 Folic Acid (Folic Acid) 1 mg DAILY PO Last administered on 03/15/17 08:49; Admin Dose 1 MG; Start 03/12/17 at 09:00 Pregabalin (Lyrica) 25 mg QHS PO Last administered on 03/15/17 22:13; Admin Dose 25 MG; Start 03/12/17 at 21:00 Venlafaxine HCl (Effexor Xr) 150 mg DAILY PO Last administered on 03/15/17 08: 49; Admin Dose 150 MG; Start 03/12/17 at 09:00 Atorvastatin Calcium 10 mg 10 mg QHS PO Last administered on 03/15/17 22:12; Admin Dose 10 MG; Start 03/12/17 at 21:00 Levofloxacin/ Dextrose (Levaquin 750 Mg/ D5W 150 ml (Pmx)) 150 ml @ 100 mls/hr Q48H IVPB Last administered on 03/16/17 07:58; Admin Dose 100 MLS/HR; Start at 09:00 Enoxaparin Sodium (Lovenox) 60 mg Q12 SC Last administered on 03/15/17 22:38; Admin Dose 60 MG; Start 03/13/17 at 09:00 Famotidine (Pepcid) 20 mg DAILY PO Last administered on 03/15/17 08:49; Admin Dose 20 MG; Start 03/14/17 at 09:00 Clonidine 0.1 mg 0.1 mg Q6H PRN PO ELEVATED BLOOD PRESSURE Last administered on 03/15/17 07:33; Admin Dose 0.1 MG; Start 03/13/17 at 11:30 Diltiazem HCl (Cardizem-D5W 125 Mg/125 ml Drip) 125 ml @ 5 mls/hr TITRATE IV Last administered on 03/13/17 15:40; Admin Dose 5 MLS/HR; Start 03/13/17 at 15: 00 Acetaminophen 500 mg 500 mg 09,16 PO Last administered on 03/15/17 18:45; Admin Dose 500 MG; Start 03/13/17 at 16:00 Vancomycin HCl/ Sodium Chloride (Vancocin/NS) 250 ml @ 83.333 mls/ hr Q24H IVPB Last administered on 03/15/17 12:08; Admin Dose 83.333 MLS/HR; Start at 12:00 Patient Own Medication 1 ea QHS PO Last administered on 03/15/17 21:00; Admin Dose 1 EA; Start 03/15/17 at 01:00 Diltiazem HCl (Cardizem Iv) 5 mg Q1H PRN IV AFIB WITH HR > 100; Start 03/15/17 at 08:00 Acyclovir (Zovirax) 400 mg TID PO Last administered on 03/15/17 22:12; Admin Dose 400 MG; Start 03/15/17 at 13:00 Alprazolam (Xanax) 0.25 mg HS PO Last administered on 03/15/17 22:13; Admin Dose 0.25 MG; Start 03/15/17 at 21:00 Carvedilol (Coreg) 12.5 mg BID PO ; Start 03/16/17 at 09:00 Diltiazem HCl (Cardizem Iv) 10 mg Q1H PRN IV HR >105; Start 03/16/17 at 09:00 Assessment/Plan Chief Complaint/Hosp Course 1. 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 P afib with RVR 3. cellulitis LE and leukocytosis 4. HTN and HTN heart disease 5. hx CVA 6. hx brain aneurysm 7. anxiety/ depression 8. presyncope due to above 9. PULM HTN 10. chest pain atypical RECOMMENDATIONS: cont Lovenox for now abx as per IM will stop amiodarone drip and inc coreg to control HR and BP better. ECHO REVIEWED. cont norvasc. CARDIZEM IV prn replace lytes prn . LABS ARE STILL PENDING FROM TODAY. R/O [place] with serial cardiac enzymes. lexiscan done today awaiting results PPM is scheduled for next monday ONCE infection has cleared up completely. D/ W daughter and R/B/A D/W her and she agrees. Thank you for his referral will continue to follow along with you. JOSEF GÓMEZ MD [facility] Problems: JOSEF GÓMEZ MD Mar 16, 2017 10:11
[2017-03-16] MEDS: ACYCLOVIR 400 MG TAB PO SCH ×3 (10:29→21:32)
[2017-03-16] MEDS: FOLIC ACID 1 MG TAB PO SCH (10:29)
[2017-03-16] MEDS: DONEPEZIL 5 MG TAB PO SCH (10:30)
[2017-03-16] MEDS: VENLAFAXINE (XR) 75 MG CAP PO SCH (10:30)
[2017-03-16] MEDS: AMLODIPINE 2.5 MG TAB PO SCH (10:31)
[2017-03-16] MEDS: ACETAMINOPHEN 500 MG TAB PO SCH ×2 (10:31→21:29)
[2017-03-16] MEDS: FAMOTIDINE 20 MG TAB PO SCH (10:31)
[2017-03-16] MEDS: ENOXAPARIN 60 MG/0.6 ML SYG SC SCH ×2 (10:55→22:01)
[2017-03-16 11:10] LABS: BASOPHIL # 0.1 10^3/ul (0.0-0.1); BASOPHILS % 0.6 % (0.0-2.0); EOSINOPHILS # 0.4 10^3/ul (0.0-0.5); HEMATOCRIT 37.5 % (37.0-47.0); HEMOGLOBIN 12.4 g/dl (12.0-16.0); LYMPHOCYTES # 1.6 10^3/ul (0.8-2.9); LYMPHOCYTES % 14.9 % (15.0-51.0); MEAN CORPUSCULAR HEMOGLOBIN 30.4 pg (29.0-33.0); MEAN CORPUSCULAR HGB CONC 33.1 g/dl (32.0-37.0); MEAN CORPUSCULAR VOLUME 91.9 fl (82.0-101.0); MEAN PLATELET VOLUME 11.4 fl (7.4-10.4); MONOCYTE # 0.8 10^3/ul (0.3-0.9); MONOCYTES % 7.3 % (0.0-11.0); NEUTROPHILS % 72.3 % (39.0-77.0); PLATELET COUNT 303 10^3/UL (140-415); RED BLOOD COUNT 4.08 10^6/ul (4.20-5.40); RED CELL DISTRIBUTION WIDTH 15.1 % (11.5-14.5); WHITE BLOOD COUNT 10.4 10^3/ul (4.8-10.8)
[2017-03-16 12:34] LABS: INR 1.04; PROTIME 13.6 Sec (12.2-14.2); PT RATIO 1.1
[2017-03-16 12:35] LABS: ALBUMIN 3.1 g/dl (3.3-4.9); ALBUMIN/GLOBULIN RATIO 0.91; BILIRUBIN,INDIRECT 0.4 mg/dl (0-1.1); BILIRUBIN,TOTAL 0.4 mg/dl (0.2-1.3); CALCIUM 9.2 mg/dl (8.4-10.2); CREATININE 0.92 mg/dl (0.44-1.00); MAGNESIUM 1.9 mg/dl (1.7-2.5); POTASSIUM 3.8 mmol/L (3.5-5.1); TOTAL PROTEIN 6.5 g/dl (6.1-8.1)
--- NOTE | 2017-03-16 12:44 | RADRPT ---
PROCEDURE: Lexiscan myocardial perfusion study CLINICAL INDICATION: 86 -year-old patient complaining of chest pain. TECHNIQUE: Lexiscan 0.4 mg intravenously separate acquisition gated myocardial perfusion SPECT usi ng Tc 99m Myoview 30.5 mCi intravenously at stress and Tc-99m Myoview, 0.5 mCi intravenously at rest was performed using the rest/stress sequence. Poststress Myoview SPECT images were obtained in the supine position. COMPARISON: No prior studies. FINDINGS: Perfusion images reveal mild nonreversible perfusion abnormality in the distal anteroseptal wall, li hailee related to soft tissue attenuation. Lexiscan post stress gated SPECT images demonstrate no wall motion abnormalities. IMPRESSION: 1. No evidence of stress-induced ischemia. 2. No wall motion abnormalities. 3. The left ventricle ejection fraction at stress is 50%. A call report was made to Dr. Pérez at 12: 42 p.m. on March 16, 2017. RPTAT: HH .Claribel Larry MD, Date Time Electronically viewed and signed by .Claribel Larry MD, on 03/16/2017 12:43 .L/
[2017-03-16 12:45] LABS: CK-MB 1.31 ng/ml (0.0-2.4); TROPONIN-I 0.014 ng/ml (0.00-0.12)
[2017-03-16] MEDS: VANCOMYCIN 1.5 GM in SOD CHLORIDE 0.9% 250 ML IVPB SCH (13:30)
--- NOTE | 2017-03-16 15:34 | PN ---
DATE: 03/16/2017 SUBJECTIVE DATA: The patient is alert, looks comfortable. Family at bedside. No fevers. Temperature 98.2, pulse 80, respirations 18, blood pressure 162/82, saturation 98 on room air. LABORATORY AND DIAGNOSTIC DATA: WBC 10.4, H and H 12.4 and 37.5, platelets 303, neutrophils 72.3. BUN 20, creatinine 0.92. MICROBIOLOGY: Urine cultures remain negative. ANTIMICROBIALS: The patient is on vancomycin, acyclovir, and Levaquin. PHYSICAL EXAMINATION: GENERAL: This is a fragile, well-developed, elderly woman, who is alert, in no distress. HEENT: Head atraumatic, normocephalic. Sclerae anicteric. Buccal mucosa pink. NECK: Supple. CHEST: Chest rise symmetrical. Breath sounds clear. HEART: S1, S2. ABDOMEN: Soft, bowel sounds present. EXTREMITIES: Without cyanosis, edema. ASSESSMENT: 1. Systemic inflammatory response syndrome with leukocytosis, resolved. 2. Upper and lower lip herpetic lesions, on acyclovir. 3. Status post right lower extremity cellulitis. 4. Coronary artery disease. 5. Hypertension. 6. Atrial fibrillation. 7. History of cerebrovascular accident. PLAN: The patient remains stable. We are going to discontinue vancomycin and Levaquin. Continue acyclovir. Follow recommendations of consultants. Dictated By: Nan Jaramillo NP /feliberto/luis a /Document#: [id number]
--- NOTE | 2017-03-16 20:13 | PN ---
Date/Time of Note Date/Time of Note DATE: 03/16/17 TIME: 19:57 Assessment/Plan VTE Prophylaxis VTE Prophylaxis Intervention: LMWH Lines/Catheters IV [facility]from [facility] [place]ine [employer] Central line still needed: No Urinary Cath still in place: No Assessment/Plan Problems: (1) Cellulitis of right lower leg Status: Resolved (2) Essential (primary) hypertension Status: Chronic Comment: Decent blood pressure control (3) Paroxysmal atrial fibrillation Status: Chronic Comment: Management per Dr. Pérez. Amiodarone discontinued and Coreg dose increased (4) Dropped heart beats Status: Acute Comment: Sick Sinus Syndrome. Plan for Pacemaker placement on Monday. 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 Spoke with Dr. Pérez regarding probable discharge tomorrow. I will plan for patient's discharge home tomorrow afternoon, after Dr. Pérez confirms she is clinically stable after cardiac medication dose changes. Patient will return to [facility] on Monday for pacemaker placement. Cont'd Hospitalization Reason: Discharge planing Subjective 24 Hr Interval Summary Free Text/Dictation S/P Lexiscan today. Patient states had an "uncomfortable time" during the procedure but is now doing fine. Denies chest pain at any time during the day today. Exam/Review of Systems Vital Signs Vitals Vital Signs Date Time Temp Pulse Resp B/P Pulse Ox O2 Delivery O2 Flow Rate FiO2 03/16/17 18:24 2.0 03/16/17 16:18 98.6 81 19 126/68 97 03/15/17 20:00 Nasal Cannula 03/12/17 20:01 21 Intake and Output 03/15/17 03/15/17 03/16/17 15:00 23:00 07:00 Intake Total 400 ml 500 ml 75 ml Output Total 1450 ml 550 ml Balance -1050 ml 500 ml -475 ml Exam Constitutional: alert, oriented, well developed Eyes: EOMI, PERRL, nl conjunctiva ENMT: other (crusted vesicles upper and lower lips) Neck: non-tender, supple Respiratory: clear to auscultation, normal air movement Cardiovascular: irregular rhythm Gastrointestinal: soft Musculoskeletal: nl extremities to inspection Extremities: normal pulses Skin: other (small sternal abrasion ) Results Labs reviewed Result Diagram: 03/16/1750 03/16/1750 Results 24 hrs Laboratory Tests Test 03/16/17 09:50 White Blood Count 10.4 Red Blood Count 4.08 L Hemoglobin 12.4 Hematocrit 37.5 Mean Corpuscular Volume 91.9 Mean Corpuscular Hemoglobin 30.4 Mean Corpuscular Hemoglobin Concent 33.1 Red Cell Distribution Width 15.1 H Platelet Count 303 Mean Platelet Volume 11.4 H Neutrophils % 72.3 Lymphocytes % 14.9 L Monocytes % 7.3 Eosinophils % 4.0 Basophils % 0.6 Nucleated Red Blood Cells % 0.0 Neutrophils # (Manual) 7.5 Lymphocytes # 1.6 Monocytes # 0.8 Eosinophils # 0.4 Basophils # 0.1 Nucleated Red Blood Cells # 0.0 Prothrombin Time 13.6 # Prothrombin Time Ratio 1.1 INR International Normalized Ratio 1.04 Sodium Level 143 Potassium Level 3.8 Chloride Level 99 Carbon Dioxide Level 29 Anion Gap 19 H Blood Urea Nitrogen 20 Creatinine 0.92 Glucose Level 109 Calcium Level 9.2 Magnesium Level 1.9 Total Bilirubin 0.4 Direct Bilirubin 0.00 Indirect Bilirubin 0.4 Aspartate Amino Transf (AST/SGOT) 23 Alanine Aminotransferase (ALT/SGPT) 37 Alkaline Phosphatase 91 Creatine Kinase 26 Creatine Kinase Index 5.0 Creatinine Kinase MB (Mass) 1.31 Troponin I 0.014 B-Type Natriuretic Peptide 14442 H Total Protein 6.5 Albumin 3.1 L Globulin 3.40 H Albumin/Globulin Ratio 0.91 Medications Medications Current Medications Amlodipine Besylate (Norvasc) 2.5 mg QAM PO Last administered on 03/16/17 10: 31; Admin Dose 2.5 MG; Start 03/12/17 at 09:00 Donepezil HCl (Aricept) 5 mg DAILY PO Last administered on 03/16/17 10:30; Admin Dose 5 MG; Start 03/12/17 at 09:00 Escitalopram Oxalate (Lexapro) 5 mg QPM PO Last administered on 03/15/17 22:12 ; Admin Dose 5 MG; Start 03/12/17 at 21:00 Folic Acid (Folic Acid) 1 mg DAILY PO Last administered on 03/16/17 10:29; Admin Dose 1 MG; Start 03/12/17 at 09:00 Pregabalin (Lyrica) 25 mg QHS PO Last administered on 03/15/17 22:13; Admin Dose 25 MG; Start 03/12/17 at 21:00 Venlafaxine HCl (Effexor Xr) 150 mg DAILY PO Last administered on 03/16/17 10: 30; Admin Dose 150 MG; Start 03/12/17 at 09:00 Atorvastatin Calcium (Lipitor) 10 mg QHS PO Last administered on 03/15/17 22: 12; Admin Dose 10 MG; Start 03/12/17 at 21:00 Enoxaparin Sodium (Lovenox) 60 mg Q12 SC Last administered on 03/16/17 10:55; Admin Dose 60 MG; Start 03/13/17 at 09:00 Famotidine (Pepcid) 20 mg DAILY PO Last administered on 03/16/17 10:31; Admin Dose 20 MG; Start 03/14/17 at 09:00 Clonidine 0.1 mg 0.1 mg Q6H PRN PO ELEVATED BLOOD PRESSURE Last administered on 03/15/17 07:33; Admin Dose 0.1 MG; Start 03/13/17 at 11:30 Diltiazem HCl (Cardizem-D5W 125 Mg/125 ml Drip) 125 ml @ 5 mls/hr TITRATE IV Last administered on 03/13/17 15:40; Admin Dose 5 MLS/HR; Start 03/13/17 at 15: 00 Acetaminophen (Tylenol Tab) 500 mg 0916 PO Last administered on 03/16/17 10: 31; Admin Dose 500 MG; Start 03/13/17 at 16:00 Patient Own Medication 1 ea QHS PO Last administered on 03/15/17 21:00; Admin Dose 1 EA; Start 03/15/17 at 01:00 Diltiazem HCl (Cardizem Iv) 5 mg Q1H PRN IV AFIB WITH HR > 100; Start 03/15/17 at 08:00 Acyclovir (Zovirax) 400 mg TID PO Last administered on 03/16/17 13:12; Admin Dose 400 MG; Start 03/15/17 at 13:00 Alprazolam (Xanax) 0.25 mg HS PO Last administered on 03/15/17 22:13; Admin Dose 0.25 MG; Start 03/15/17 at 21:00 Carvedilol (Coreg) 12.5 mg BID PO Last administered on 03/16/17t 10:30; Admin Dose 12.5 MG; Start 03/16/17 at 09:00 Diltiazem HCl (Cardizem Iv) 10 mg Q1H PRN IV HR >105; Start 03/16/17 at 09:00 Procedures Procedures Lexiscan result reviewed ALETA MAGUIRE MD Mar 16, 2017 20:07
--- NOTE | 2017-03-16 20:18 | PDOCDIS ---
Discharge Instructions CONDITION Patient Condition: Stable HOME CARE INSTRUCTIONS: Diet Instructions: RegularSpecial Diet: Regular Diet ACTIVITY: Activity Restrictions: Slowly Increase Activity Avoid heavy lifting Do not Drive Activity Restrictions Comment: no bathing restricitons FOLLOW UP/APPOINTMENTS Follow-up Plan Pacemaker Placement Tuesday March 21, 2017 [facility]. ALETA MAGUIRE MD Mar 16, 2017 20:18
[2017-03-16] MEDS ORDERED: ACYC400T2 PO (20:25)
[2017-03-16] MEDS ORDERED: CARV12.579 PO (20:25)
[2017-03-16] MEDS ORDERED: ALPR0.254 PO (20:25)
[2017-03-16] MEDS ORDERED: ENOX60DI11 SC (20:25)
[2017-03-16] MEDS: NAMENDA 28 MG PO SCH (21:29)
[2017-03-16] MEDS: ATORVASTATIN 10 MG TAB PO SCH (21:31)
[2017-03-16] MEDS: ALPRAZOLAM 0.25 MG TAB PO SCH (21:32)
[2017-03-16] MEDS: PREGABALIN 25 MG CAP PO SCH (21:32)
[2017-03-16] MEDS: ESCITALOPRAM 10 MG TAB PO SCH (21:32)
[2017-03-17] VITALS (9 sets, daily range): BP systolic 144–163; BP diastolic 70–83; PULSE 83–98; RESP 18–20
[2017-03-17 08:28] LABS: BASOPHIL # 0.1 10^3/ul (0.0-0.1); BASOPHILS % 0.7 % (0.0-2.0); EOSINOPHILS # 0.6 10^3/ul (0.0-0.5); HEMATOCRIT 36.1 % (37.0-47.0); HEMOGLOBIN 11.8 g/dl (12.0-16.0); LYMPHOCYTES # 2.2 10^3/ul (0.8-2.9); LYMPHOCYTES % 24.3 % (15.0-51.0); MEAN CORPUSCULAR HEMOGLOBIN 29.9 pg (29.0-33.0); MEAN CORPUSCULAR HGB CONC 32.7 g/dl (32.0-37.0); MEAN CORPUSCULAR VOLUME 91.6 fl (82.0-101.0); MEAN PLATELET VOLUME 11.3 fl (7.4-10.4); MONOCYTE # 0.8 10^3/ul (0.3-0.9); MONOCYTES % 8.8 % (0.0-11.0); NEUTROPHILS % 59.2 % (39.0-77.0); PLATELET COUNT 332 10^3/UL (140-415); RED BLOOD COUNT 3.94 10^6/ul (4.20-5.40); RED CELL DISTRIBUTION WIDTH 14.8 % (11.5-14.5); WHITE BLOOD COUNT 9.2 10^3/ul (4.8-10.8)
[2017-03-17] MEDS: ENOXAPARIN 60 MG/0.6 ML SYG SC SCH (08:34)
[2017-03-17] MEDS: FAMOTIDINE 20 MG TAB PO SCH (08:35)
[2017-03-17] MEDS: AMLODIPINE 2.5 MG TAB PO SCH (08:35)
[2017-03-17] MEDS: ACYCLOVIR 400 MG TAB PO SCH ×2 (08:36→12:41)
[2017-03-17] MEDS: VENLAFAXINE (XR) 75 MG CAP PO SCH (08:36)
[2017-03-17] MEDS: FOLIC ACID 1 MG TAB PO SCH (08:36)
[2017-03-17] MEDS: ACETAMINOPHEN 500 MG TAB PO SCH ×2 (08:43→15:11)
[2017-03-17 08:48] LABS: ALBUMIN 3.1 g/dl (3.3-4.9); ALBUMIN/GLOBULIN RATIO 0.88; BILIRUBIN,INDIRECT 0.2 mg/dl (0-1.1); BILIRUBIN,TOTAL 0.2 mg/dl (0.2-1.3); CALCIUM 9.3 mg/dl (8.4-10.2); CREATININE 0.97 mg/dl (0.44-1.00); MAGNESIUM 1.9 mg/dl (1.7-2.5); POTASSIUM 3.7 mmol/L (3.5-5.1); TOTAL PROTEIN 6.6 g/dl (6.1-8.1)
[2017-03-17] MEDS: DONEPEZIL 5 MG TAB PO SCH (09:16)
--- NOTE | 2017-03-17 13:54 | PN ---
DATE: 03/17/2017 SUBJECTIVE DATA: No events overnight. The patient is alert, feels good, denies pain or discomfort. No fevers. LABORATORY AND DIAGNOSTIC DATA: WBC 9.2, no shift, no bands. BUN 21, creatinine 0.97. ANTIMICROBIALS: The patient is on acyclovir p.o. 400 three times a day, status post vancomycin and Levaquin. OBJECTIVE DATA: GENERAL: Well-developed, fragile, elderly woman, who is alert, in no distress. HEENT: Head atraumatic, normocephalic. Sclerae anicteric. Buccal mucosa pink. NECK: Supple. CHEST: Rise symmetrical. Breath sounds clear. HEART: S1, S2. ABDOMEN: Soft, bowel sounds present. EXTREMITIES: Without cyanosis or edema. ASSESSMENT: 1. Resolved leukocytosis. 2. Status post right lower extremity cellulitis. 3. Upper and lower lip herpetic lesions. 4. Hypertension. 5. Coronary artery disease. PLAN: The patient continues to improve. We will continue her on acyclovir for a couple of more days. Follow Cardiology recommendations. Dictated By: Nan Jaramillo NP /feliberto/ec /Document#: [id number]
--- NOTE | 2017-03-17 14:03 | CONS ---
Date/Time of Note Date/Time of Note DATE: 03/17/17 TIME: 14:01 Consult Date/Type/Reason Admit Date/Time Mar 11, 2017 at 18:37 Initial Consult Date 03/13/17 Type of Consultation: CARDIOLOGY Ordering Provider: MELANI HASKINS MD Subjective CARDIOLOGY FOLLOW UP NOTE: Discussed with the staff and discussed and rhythm was reviewed. pt remains in AFIB HR is stable though. Discussed with patient and daughter at the bedside. pt has no more eft sided mild chest pain. pt Denies any palpitation to me. Has mild shortness of breath. OBJECTIVE: General: obese. no acute distress HEENT: NC/AT. pupils are equal. round. NECK: NO JVD. no stridor. CV: irregularly irregular. systolic murmur; no gallop or rubs. PULM: no wheezing or rhonchi. GI: SOFT,obese. NT, ND, no rebound or guarding Extremity: trace LE edema with almost complete resolution of erythema and warmth right leg. no clubbing. neuro: awake and alert, and oriented. . Psych: anxious but pleasant rectal: deferred : normal ECG NSR. LVH. LAFB. IVCD septal infarct ECG 03/13/17 AFIB RVR ECHO reviewed 1. Normal left ventricular systolic function. Normal left ventricular cavity size. Severe asymmetric septal hypertrophy. Ejection fraction is visually estimated at 60 %. Abnormal Diastolic Function. 2. There is mild enlargement of left atrium. 3. Mitral valve leaflets appear mildly thickened. Mild mitral annular calcification. Mild mitral valve regurgitation. 4. No hemodynamically significant aortic stenosis by doppler. Aortic cusps appear mildly calcified. Moderate aortic valve regurgitation. 5. Normal appearance of the tricuspid valve. Estimated peak PA systolic pressure 46 mmHg. There is mild tricuspid regurgitation. 6. Normal size and no respiratory collapse consistent with elevated right atrial pressure. 7. Normal pericardium with no significant pericardial effusion. Objective Vital Signs Date Time Temp Pulse Resp B/P Pulse Ox O2 Delivery O2 Flow Rate FiO2 03/17/17 12:20 83 03/17/17 11:38 98.2 20 163/80 96 03/17/17 08:10 Nasal Cannula 2.0 Intake and Output 03/16/17 03/16/17 03/17/17 15:00 23:00 07:00 Intake Total 250 ml 300 ml Balance 250 ml 300 ml Results/Medications Result Diagram: 03/17/1715 03/17/17 0715 Results 24 hrs Laboratory Tests Test 03/17/17 07:15 White Blood Count 9.2 Red Blood Count 3.94 L Hemoglobin 11.8 L Hematocrit 36.1 L Mean Corpuscular Volume 91.6 Mean Corpuscular Hemoglobin 29.9 Mean Corpuscular Hemoglobin Concent 32.7 Red Cell Distribution Width 14.8 H Platelet Count 332 Mean Platelet Volume 11.3 H Neutrophils % 59.2 Lymphocytes % 24.3 Monocytes % 8.8 Eosinophils % 6.0 Basophils % 0.7 Nucleated Red Blood Cells % 0.0 Neutrophils # (Manual) 5.5 Lymphocytes # 2.2 Monocytes # 0.8 Eosinophils # 0.6 H Basophils # 0.1 Nucleated Red Blood Cells # 0.0 Sodium Level 141 Potassium Level 3.7 Chloride Level 102 Carbon Dioxide Level 31 Anion Gap 12 # Blood Urea Nitrogen 21 H Creatinine 0.97 Glucose Level 89 Calcium Level 9.3 Magnesium Level 1.9 Total Bilirubin 0.2 Direct Bilirubin 0.00 Indirect Bilirubin 0.2 Aspartate Amino Transf (AST/SGOT) 28 Alanine Aminotransferase (ALT/SGPT) 38 Alkaline Phosphatase 80 B-Type Natriuretic Peptide 09267 H Total Protein 6.6 Albumin 3.1 L Globulin 3.50 H Albumin/Globulin Ratio 0.88 Medications Current Medications Amlodipine Besylate (Norvasc) 2.5 mg QAM PO Last administered on 03/17/17 08:35 ; Admin Dose 2.5 MG; Start 03/12/17 at 09:00 Donepezil HCl (Aricept) 5 mg DAILY PO Last administered on 03/17/17 09:16; Admin Dose 5 MG; Start 03/12/17 at 09:00 Escitalopram Oxalate (Lexapro) 5 mg QPM PO Last administered on 03/16/17 21:32 ; Admin Dose 5 MG; Start 03/12/17 at 21:00 Folic Acid (Folic Acid) 1 mg DAILY PO Last administered on 03/17/17 08:36; Admin Dose 1 MG; Start 03/12/17 at 09:00 Pregabalin (Lyrica) 25 mg QHS PO Last administered on 03/16/17 21:32; Admin Dose 25 MG; Start 03/12/17 at 21:00 Venlafaxine HCl (Effexor Xr) 150 mg DAILY PO Last administered on 03/17/17 08: 36; Admin Dose 150 MG; Start 03/12/17 at 09:00 Atorvastatin Calcium (Lipitor) 10 mg QHS PO Last administered on 03/16/17 21: 31; Admin Dose 10 MG; Start 03/12/17 at 21:00 Enoxaparin Sodium (Lovenox) 60 mg Q12 SC Last administered on 03/17/17 08:34; Admin Dose 60 MG; Start 03/13/17 at 09:00 Famotidine (Pepcid) 20 mg DAILY PO Last administered on 03/17/17 08:35; Admin Dose 20 MG; Start 03/14/17 at 09:00 Clonidine 0.1 mg 0.1 mg Q6H PRN PO ELEVATED BLOOD PRESSURE Last administered on 03/15/17 07:33; Admin Dose 0.1 MG; Start 03/13/17 at 11:30 Diltiazem HCl (Cardizem-D5W 125 Mg/125 ml Drip) 125 ml @ 5 mls/hr TITRATE IV Last administered on 03/13/17 15:40; Admin Dose 5 MLS/HR; Start 03/13/17 at 15: 00 Acetaminophen (Tylenol Tab) 500 mg PO Last administered on 03/17/17 08:43 ; Admin Dose 500 MG; Start 03/13/17 at 16:00 Patient Own Medication 1 ea QHS PO Last administered on 03/16/17 21:29; Admin Dose 1 EA; Start 03/15/17 at 01:00 Diltiazem HCl (Cardizem Iv) 5 mg Q1H PRN IV AFIB WITH HR > 100; Start 03/15/17 at 08:00 Acyclovir (Zovirax) 400 mg TID PO Last administered on 03/17/17 12:41; Admin Dose 400 MG; Start 03/15/17 at 13:00 Alprazolam (Xanax) 0.25 mg HS PO Last administered on 03/16/17 21:32; Admin Dose 0.25 MG; Start 03/15/17 at 21:00 Carvedilol (Coreg) 12.5 mg BID PO Last administered on 03/17/17 08:35; Admin Dose 12.5 MG; Start 03/16/17 at 09:00 Diltiazem HCl (Cardizem Iv) 10 mg Q1H PRN IV HR >105; Start 03/16/17 at 09:00 Assessment/Plan Chief Complaint/Hosp Course 1. 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 P afib with RVR 3. cellulitis LE and leukocytosis 4. HTN and HTN heart disease 5. hx CVA 6. hx brain aneurysm 7. anxiety/ depression 8. presyncope due to above 9. PULM HTN 10. chest pain atypical RECOMMENDATIONS: cont Lovenox for now until Monday. PPM is on schedule for monday. abx as per IM lexiscan shows no ischmei.a cont norvasc. ok for dc. pt to come in on monday for PPM. PPM is scheduled for next monday ONCE infection has cleared up completely. D/ W daughter and R/B/A D/W her and she agrees. Thank you for his referral will continue to follow along with you. JOSEF GÓMEZ MD [facility] Problems: JOSEF GÓMEZ MD Mar 17, 2017 14:03
[2017-03-17] MEDS ORDERED: AMIODARONE 200 MG TAB PO SCH (14:30)
== END 2017-03-17 18:35 | disposition home or self-care (01) | DRG 871 ==
LOC: E/R 15:52 → MS4 18:37 → ICU 03-12 00:17 → MS4 03-15 13:02
PROVIDERS: ADMIT Family Medicine; ATTEND Internal Medicine
PROC: C22G1ZZ Tomographic (Tomo) Nuclear Medicine Imaging of Myocardium using Technetium 99m (Tc-99m) (ICD-10-PCS; principal; 2017-03-16)
PROC: 4A02XM4 Measurement of Cardiac Total Activity, External Approach (ICD-10-PCS; 2017-03-16)
PROC: 3E033HZ Introduction of Radioactive Substance into Peripheral Vein, Percutaneous Approach (ICD-10-PCS; 2017-03-16)
DX: A41.9 Sepsis, unspecified organism (principal); J18.9 Pneumonia, unspecified organism; N17.9 Acute kidney failure, unspecified; E87.2 Acidosis; I48.92 Unspecified atrial flutter; I48.0 Paroxysmal atrial fibrillation; I11.9 Hypertensive heart disease without heart failure; I27.2 Other secondary pulmonary hypertension; L03.116 Cellulitis of left lower limb; L03.115 Cellulitis of right lower limb; I49.5 Sick sinus syndrome; G30.0 Alzheimer's disease with early onset; F02.80 Dementia in other diseases classified elsewhere, unspecified severity, without behavioral disturbance, psychotic disturbance, mood disturbance, and anxiety; Z79.01 Long term (current) use of anticoagulants; E78.5 Hyperlipidemia, unspecified; Z86.73 Personal history of transient ischemic attack (TIA), and cerebral infarction without residual deficits; Z96.651 Presence of right artificial knee joint; F41.9 Anxiety disorder, unspecified; B00.1 Herpesviral vesicular dermatitis; I25.10 Atherosclerotic heart disease of native coronary artery without angina pectoris; F33.41 Major depressive disorder, recurrent, in partial remission; R07.89 Other chest pain
CPT/HCPCS: 36415; 70450; 71010; 76999; 78452; 80048; 80053; 80162; 80202; 81001; 82550; 82553; 83036; 83605; 83735; 83880; 84100; 84439; 84443; 84484; 85025; 85610; 85730; 87040; 87081; 87086; 93005; 93017; 93306; 93971; 94640; 96374; 96375; 97116; 97162; 97530; J1940; A9500; A9505; J0282; J0461; J0692; J1650; J1956; J2060; J2405; J2785; J3370; J3475; J7030; J7050; J7060

== ENCOUNTER 2017-03-21 08:32 | Observation (INO) | payer MEDICARE, MEDICAID ==
[~2017-03-21] VITALS: Ht 157.5 cm; Wt 75.0 kg
[2017-03-21] VITALS (24 sets, daily range): BP systolic 153–224; BP diastolic 68–120; PULSE 60–67; RESP 7–34; Ht 157.5 cm; Wt 75.0 kg
[~2017-03-21 08:32] MED LIST changes: +ACET-141 PO; +ACYC400T2 PO; +ALPR0.254 PO; -AMLO2.5T78; +AMLO2.5T78 PO; -BISO5TAB21; +BISO5TAB21 PO; +CARV12.579 PO; +CELE200C PO; +DONE5TAB7 PO; +ENOX60DI11 SC; -ESCI10TA; +ESCI5TAB PO; -EZET1TAB9; +FAMO20TA18 PO; -FOLI-49; +FOLI-49 PO; -LOSA100T47; +LOSA100T7 PO; +LYRI25 PO; +MEMA28CA PO; +SIMV20TA PO; +VENL150C94 PO; +WARF3TAB PO
[2017-03-21 09:26] LABS: BASOPHIL # 0.1 10^3/ul (0.0-0.1); BASOPHILS % 0.8 % (0.0-2.0); EOSINOPHILS # 0.6 10^3/ul (0.0-0.5); EOSINOPHILS % 5.3 % (0.0-7.0); HEMATOCRIT 37.8 % (37.0-47.0); HEMOGLOBIN 12.3 g/dl (12.0-16.0); LYMPHOCYTES # 2.2 10^3/ul (0.8-2.9); LYMPHOCYTES % 19.5 % (15.0-51.0); MEAN CORPUSCULAR HEMOGLOBIN 29.9 pg (29.0-33.0); MEAN CORPUSCULAR HGB CONC 32.5 g/dl (32.0-37.0); MEAN CORPUSCULAR VOLUME 91.7 fl (82.0-101.0); MEAN PLATELET VOLUME 10.4 fl (7.4-10.4); NEUTROPHILS % 64.2 % (39.0-77.0); PLATELET COUNT 420 10^3/UL (140-415); RED BLOOD COUNT 4.12 10^6/ul (4.20-5.40); RED CELL DISTRIBUTION WIDTH 15.2 % (11.5-14.5)
[2017-03-21] MEDS ORDERED: PROPOFOL 100 ML ONE (09:28)
[2017-03-21] MEDS ORDERED: FENTAnyl 50 MCG/ML VIAL ONE (09:29)
[2017-03-21] MEDS ORDERED: CEFAZOLIN 2 GM/50 ML (PMX) 50 ML IVPB ONE (09:38)
[2017-03-21] MEDS ORDERED: LIDOCAINE 1%/EPI 30 ML INJ ONE (09:38)
[2017-03-21 09:39] LABS: PROTIME 13.2 Sec (12.2-14.2)
[2017-03-21 09:45] LABS: ALBUMIN/GLOBULIN RATIO 0.97; BILIRUBIN,INDIRECT 0.3 mg/dl (0-1.1); BILIRUBIN,TOTAL 0.3 mg/dl (0.2-1.3); TOTAL PROTEIN 8.1 g/dl (6.1-8.1)
[2017-03-21 09:51] LABS: PARTIAL THROMBOPLASTIN TIME 35.3 Sec (25.0-35.0)
[2017-03-21 10:00] LABS: CALCIUM 9.8 mg/dl (8.4-10.2); CREATININE 1.07 mg/dl (0.44-1.00); POTASSIUM 4.1 mmol/L (3.5-5.1)
[2017-03-21] MEDS ORDERED: ACET-141 PO (10:05)
[2017-03-21] MEDS ORDERED: ESCI5TAB PO (10:05)
[2017-03-21] MEDS ORDERED: FOLI-49 PO (10:05)
[2017-03-21] MEDS ORDERED: MEMA28CA PO (10:05)
[2017-03-21] MEDS ORDERED: CELE200C PO (10:05)
[2017-03-21] MEDS ORDERED: DONE5TAB7 PO (10:05)
[2017-03-21] MEDS ORDERED: FAMO20TA18 PO (10:05)
[2017-03-21] MEDS ORDERED: SIMV20TA PO (10:05)
[2017-03-21] MEDS ORDERED: LYRI25 PO (10:05)
[2017-03-21] MEDS ORDERED: VENL150T PO (10:05)
[2017-03-21] MEDS ORDERED: BISO5TAB21 PO (10:05)
[2017-03-21] MEDS ORDERED: AMLO2.5T78 PO (10:05)
[2017-03-21] MEDS ORDERED: AMIO200T2 PO (10:06)
[2017-03-21] MEDS ORDERED: CARV12.579 PO (10:06)
--- NOTE | 2017-03-21 11:09 | OPR ---
Date/Time of Note Date/Time of Note DATE: 03/21/17 TIME: 11:06 Operative Report Procedure Date: Mar 21, 2017 Operative\Procedure Findings Procedure performed: Permanent pacemaker placement using a [employer] MRI compatible device Left subclavian venogram and radiological interpretations Fluoroscopy and supervision Intracardiac electrocardiogram Indication: Sick sinus syndrome with tachy/gogo syndrome and up to 8 seconds pauses. Anesthesia: Per anesthesiologist Blown Film Extrusion Operator: Josef Pérez MD Procedure in detail: Written informed consent was obtained after risks benefits and alternatives discussed with the patient and family in detail. Risks including but not limited to risk of infection, bleeding complications, anesthesia related complications, MO, CVA, perforation, pneumothorax hemothorax, etc discussed with pt in detail. Patient was brought into into the Investigation Division Sergeant and placed in supine position. sedation was given by anesthesiologist. Left chest area was prepped and draped in regular sterile fashion. Left subclavian venogram was performed that showed patent subclavian vein and a small cephalic vein. AC groove area was anesthetized using 1% lidocaine with epi. A 3 cm incision was made in the AC groove area. Blunt dissection was carried out. Cephalic vein was isolated. It was cannulated using a micropuncture needle and an BMW wire was advanced through into the inferior vena cava. Micropuncture sheath was placed over it. BMW wire was removed and a J-wire was advanced through it. Then the micropuncture sheath was removed and an [] 8 Nepalese sheath was placed over into the cephalic vein. Then, another J-wire into the sheet. The sheath was removed again and a new sheath was placed over the wire into the cephalic vein. RV lead was advanced under direct fluoroscopy and placed in the right ventricular low septum . Once a good position was found, threshold was checked which showed excellent threshold. It was screwed into place and threshold were checked again which showed good injury pattern and no diaphragmatic stimulation at 10 V an excellent thresholds. Then the sheath was peeled away. Another 8 Nepalese sheath was placed over the second wire into the cephalic vein into the subclavian vein. Right atrial lead was advanced under direct fluoroscopy and placed into the right atrial appendage. Once a good position was found it was screwed into place. Thresholds were checked again which showed excellent injury pattern and no diaphragmatic assimilation at 10 V and good thresholds. Right atrial lead sheath was removed. Both leads were tied down using 0 Ethibond suture. Pocket was irrigated with antibiotic solution. The lead was checked again which showed good thresholds. Then leads were connected into the device. Device was placed into the pocket and sutured using 0 Ethibond suture. Wound was closed with 1 layer of 2.0 Vicryl and 2 layers of 3.0 Vicryl. Steri- Strip was applied and pressure dressing was applied. Patient tolerated procedure well with no complication and was transferred to the recovery room in stable condition. Immediate complication: none Please see physical chart for details regarding pacemaker information and thresholds. Conclusions: Successful implantation of dual-chamber permanent pacemaker JOSEF PÉREZ MD [facility] JOSEF PÉREZ MD Mar 21, 2017 11:08
[2017-03-21] MEDS ORDERED: IODIXANOL LOCM 50 ML BTL ONE (11:26)
[2017-03-21] MEDS ORDERED: SOD CHLORIDE 0.9% 500 ML ONE (11:26)
[2017-03-21] MEDS ORDERED: POLYMYXIN/BACITRACIN 1L IRRIG IRR SCH (11:30)
[2017-03-21] MEDS ORDERED: ACETAMINOPHEN 500 MG TAB PO PRN ×2 (11:30)
[2017-03-21] MEDS ORDERED: morphine 2 MG INJ IV PRN ×2 (11:30)
[2017-03-21] MEDS ORDERED: hydrALAzine 20 MG INJ ONE (11:48)
[2017-03-21] MEDS ORDERED: hydrALAzine 20 MG INJ IV SCH (11:50)
[2017-03-21] MEDS: ACETAMINOPHEN 325 MG TAB PO PRN ×3 (11:54→20:52)
--- NOTE | 2017-03-21 12:40 | RADRPT ---
PROCEDURE: XR Chest. CLINICAL INDICATION: PACEMAKER DEVICE INSERTION, pneumothorax. TECHNIQUE: Single frontal view of the chest was obtained. COMPARISON: Chest x-ray from 03/12/2017 FINDINGS: There has been interval placement of a left-sided dual lead pacemaker. There is stable mild cardiomegaly. The aortic arch is calcified. There is stable prominence of interstitial markings, likely due to chronic / senescent changes. No definite focal infiltrates are identified. There is no significant pleural effusion or pneumothorax. There is decreased osseous mineralization. IMPRESSION: Interval placement of a left-sided pacemaker without a pneumothorax. RPTAT: EE Physician Celso Date Time Electronically viewed and signed by Physician Celso on 03/21/2017 12:40 /
[2017-03-21] MEDS: CEFAZOLIN 1 GM/50 ML (PMX) 50 ML IVPB SCH ×2 (14:55→23:36)
--- NOTE | 2017-03-21 17:42 | HP ---
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 Cont'd Hospitalization Reason: Plan for possible discharge home tomorrow. HPI/ROS Admit Date/Time Admit Date/Time Mar 21, 2017 at 11:09 Hx of Present Illness 86 year old woman with history of sick sinus syndrome with tachy/gogo syndrome and up to 8 seconds pauses. S/P Permanent pacemaker placement using a [employer] MRI compatible device left subclavian venogram and radiological interpretations , fluoroscopy supervision with intracardiac electrocardiogram performed by Dr. Pérez. ROS Patient with complaint of throbbing pain at surgical sight and complaint of headache. Constitutional: no complaints Eyes: no complaints ENT: no complaints Respiratory: no complaints Cardiovascular: other (as per above) Gastrointestinal: no complaints Genitourinary: no complaints Musculoskeletal: no complaints Skin: no complaints Neurologic: headache Endocrine: no complaints Lymphatic: no complaints Psychological: no complaints PMH/Family/Social Past Medical History Medical History: GERD, hypertension (mild), other Past Surgical History Past Surgical Hx: other (TKR) Family History Significant Family History: no pertinent family hx Social History Born in [place]. . Lives with daughter Alcohol Use: none Smoking Status: Never smoker Drug Use: none Exam/Review of Systems Vital Signs Vitals Vital Signs Date Time Temp Pulse Resp B/P Pulse Ox O2 Delivery O2 Flow Rate FiO2 03/21/17 16:20 60 03/21/17 15:32 98.1 18 155/72 96 03/21/17 13:25 Nasal Cannula 03/21/17 12:11 3.0 Exam Constitutional: alert, oriented, well developed Psych: nl mood/affect Head: normocephalic Eyes: EOMI, PERRL, nl conjunctiva Neck: non-tender, supple Respiratory: clear to auscultation Cardiovascular: nl pulses, regular rate and rhythm Gastrointestinal: soft Musculoskeletal: nl extremities to inspection Extremities: normal pulses Skin: nl turgor Lymph: nl lymph nodes Labs Result Diagram: 03/21/1790803/21/17908 Medications Medications Current Medications Acetaminophen (Tylenol Tab) 650 mg Q4H PRN PO NON-CARDIAC PAIN LEVEL (1-3) Last administered on 03/21/17 17:18; Admin Dose 650 MG; Start 03/21/17 at 11:30 Morphine Sulfate (morphine) 2 mg Q2H PRN IV FOR NON CARDIAC PAIN (4-10); Start 03/21/17 at 11:30 Morphine Sulfate 1 mg 1 mg Q1H PRN IV PAIN; Start 03/21/17 at 11:30 Cefazolin Sodium (Ancef 1 Gm/50 ml (Pmx)) 50 ml @ 100 mls/hr Q8 IVPB Last administered on 03/21/17 14:55; Admin Dose 100 MLS/HR; Start 03/21/17 at 14:00; Stop 03/22/17 at 06:29 Amiodarone HCl (Cordarone) 200 mg DAILY PO ; Start 03/22/17 at 09:00 Amlodipine Besylate (Norvasc) 2.5 mg QAM PO ; Start 03/22/17 at 09:00 Bisoprolol Fumarate (Zebeta) 5 mg BID PO ; Start 03/21/17 at 21:00 Celecoxib (Celebrex) 200 mg DAILY PO ; Start 03/22/17 at 09:00 Donepezil HCl (Aricept) 5 mg DAILY PO ; Start 03/22/17 at 09:00 Escitalopram Oxalate (Lexapro) 5 mg QHS PO ; Start 03/21/17 at 21:00 Famotidine (Pepcid) 20 mg BID PO ; Start 03/21/17 at 21:00 Folic Acid (Folic Acid) 1 mg DAILY PO ; Start 03/22/17 at 09:00 Pregabalin (Lyrica) 25 mg QHS PO ; Start 03/21/17 at 21:00 Venlafaxine HCl (Effexor Xr) 150 mg DAILY PO ; Start 03/22/17 at 09:00 Warfarin Sodium (Coumadin) 3 mg DAILY PO ; Start 03/22/17 at 09:00; Status Future Hold ALETA MAGUIRE MD Mar 21, 2017 17:41
[2017-03-21] MEDS: FAMOTIDINE 20 MG TAB PO SCH (20:51)
[2017-03-21] MEDS ORDERED: FAMOTIDINE 20 MG TAB PO SCH (21:00)
[2017-03-21] MEDS ORDERED: ESCITALOPRAM 10 MG TAB PO SCH ×2 (21:00)
[2017-03-21] MEDS ORDERED: PREGABALIN 25 MG CAP PO SCH ×2 (21:00)
[2017-03-21] MEDS ORDERED: BISOPROLOL 5 MG TAB PO SCH (21:00)
[2017-03-22] VITALS (11 sets, daily range): BP systolic 149–200; BP diastolic 69–89; PULSE 60–71; RESP 16–18
[2017-03-22] MEDS: hydrALAzine 20 MG INJ IV PRN ×2 (00:47→06:56)
[2017-03-22] MEDS: ACETAMINOPHEN 325 MG TAB PO PRN ×2 (06:03→11:50)
[2017-03-22] MEDS: CEFAZOLIN 1 GM/50 ML (PMX) 50 ML IVPB SCH (06:03)
[2017-03-22] MEDS: FAMOTIDINE 20 MG TAB PO SCH (08:39)
[2017-03-22] MEDS ORDERED: FOLIC ACID 1 MG TAB PO SCH ×2 (09:00)
[2017-03-22] MEDS ORDERED: VENLAFAXINE (XR) 75 MG CAP PO SCH ×2 (09:00)
[2017-03-22] MEDS ORDERED: DONEPEZIL 5 MG TAB PO SCH ×2 (09:00)
[2017-03-22] MEDS ORDERED: CELECOXIB 200 MG CAP PO SCH ×2 (09:00)
[2017-03-22] MEDS ORDERED: AMLODIPINE 2.5 MG TAB PO SCH ×2 (09:00)
[2017-03-22] MEDS ORDERED: WARFARIN 3 MG TAB PO SCH (09:00)
[2017-03-22] MEDS ORDERED: AMIODARONE 200 MG TAB PO SCH (09:00)
[2017-03-22] MEDS ORDERED: DILTIAZEM (CD) 120 MG CAP PO SCH (09:00)
[2017-03-22] MEDS ORDERED: NEBIVOLOL 5 MG TAB PO SCH (09:30)
[2017-03-22] MEDS ORDERED: HYDROCHLOROTHIAZIDE 12.5 MG CAP PO SCH (10:00)
[2017-03-22] MEDS ORDERED: LOSARTAN 50 MG TAB PO SCH (10:00)
--- NOTE | 2017-03-22 10:10 | CONS ---
Date/Time of Note Date/Time of Note DATE: 03/22/17 TIME: 10:06 Consult Date/Type/Reason Admit Date/Time Mar 21, 2017 at 11:09 Initial Consult Date Subjective d/w staff and daughter. pt with no chest pain or pressure. she remains in Apaced. OBJECTIVE: Gen no acute distress HEENT NC AT CV RRR. PULM: NO WHEEZING. GI obese soft chest s/p PPMno bleeding or hematoma CXR reviewed. pacemaker was interrogated with excellent function Objective Vital Signs Date Time Temp Pulse Resp B/P Pulse Ox O2 Delivery O2 Flow Rate FiO2 03/22/17 08:29 98.9 69 17 185/74 95 03/22/17 00:05 Nasal Cannula 2.0 Intake and Output 03/21/17 03/21/17 03/22/17 15:00 23:00 07:00 Intake Total 720 ml 350 ml Balance 720 ml 350 ml Results/Medications Result Diagram: 03/21/17 0909 03/21/17 0909 Medications Current Medications Acetaminophen (Tylenol Tab) 650 mg Q4H PRN PO NON-CARDIAC PAIN LEVEL (1-3) Last administered on 03/22/17 06:03; Admin Dose 650 MG; Start 03/21/17 at 11:30 Morphine Sulfate (morphine) 2 mg Q2H PRN IV FOR NON CARDIAC PAIN (4-10) Last administered on 03/22/17 00:47; Admin Dose 2 MG; Start 03/21/17 at 11:30 Morphine Sulfate (morphine) 1 mg Q1H PRN IV PAIN Last administered on 03/21/17 20:57; Admin Dose 1 MG; Start 03/21/17 at 11:30 Amiodarone HCl (Cordarone) 200 mg DAILY PO Last administered on 03/22/17 08:39 ; Admin Dose 200 MG; Start 03/22/17 at 09:00 Celecoxib (Celebrex) 200 mg DAILY PO Last administered on 03/22/17 08:40; Admin Dose 200 MG; Start 03/22/17 at 09:00 Donepezil HCl (Aricept) 5 mg DAILY PO Last administered on 03/22/17 08:39; Admin Dose 5 MG; Start 03/22/17 at 09:00 Escitalopram Oxalate (Lexapro) 5 mg QHS PO Last administered on 03/21/17 20:51 ; Admin Dose 5 MG; Start 03/21/17 at 21:00 Famotidine (Pepcid) 20 mg BID PO Last administered on 03/22/17 08:39; Admin Dose 20 MG; Start 03/21/17 at 21:00 Folic Acid (Folic Acid) 1 mg DAILY PO Last administered on 03/22/17 08:39; Admin Dose 1 MG; Start 03/22/17 at 09:00 Pregabalin (Lyrica) 25 mg QHS PO Last administered on 03/21/17 20:51; Admin Dose 25 MG; Start 03/21/17 at 21:00 Venlafaxine HCl (Effexor Xr) 150 mg DAILY PO Last administered on 03/22/17 08: 40; Admin Dose 150 MG; Start 03/22/17 at 09:00 Hydralazine HCl (Apresoline) 10 mg Q6H PRN IV HTN Last administered on 06:56; Admin Dose 10 MG; Start 03/22/17 at 00:30 Warfarin Sodium (Coumadin) 3 mg DAILY@17 PO ; Start 03/23/17 at 17:00 Diltiazem HCl (Cardizem Cd) 120 mg BID PO Last administered on 03/22/17 08:39; Admin Dose 120 MG; Start 03/22/17 at 09:00 Miscellaneous Medication (Bystolic) 10 mg BID PO ; Start 03/22/17 at 09:30 Losartan Potassium (Cozaar) 50 mg DAILY PO ; Start 03/22/17 at 10:00 Hydrochlorothiazide (Hydrochlorothiazide) 12.5 mg DAILY PO ; Start 03/22/17 at 10 :00 Assessment/Plan Chief Complaint/Hosp Course 1. SSS S/P PPM: normal function today 2. Pafib. currently in NSR 3. HTN: 4. ANXIETY. Insomnia will change BP MEDS TO: BYSTOLIC 10 BID CARDIZEM CD 120 BID LOSARTAN HCTZ 50/12.5N (I HAVE LEFT A PRESCRIPTION IN CHART) RESUME COUMADIN TOMORROW PM. INR check next monday. pacer check and wound./ BP check next week in my office. dc planning today once labs are back THANK YOU JOSEF GÓMEZ MD [facility] Problems: JOSEF GÓMEZ MD Mar 22, 2017 10:10
[2017-03-22 10:28] LABS: BASOPHIL # 0.1 10^3/ul (0.0-0.1); BASOPHILS % 0.4 % (0.0-2.0); EOSINOPHILS # 0.2 10^3/ul (0.0-0.5); EOSINOPHILS % 1.9 % (0.0-7.0); HEMATOCRIT 35.7 % (37.0-47.0); HEMOGLOBIN 11.7 g/dl (12.0-16.0); LYMPHOCYTES # 1.5 10^3/ul (0.8-2.9); LYMPHOCYTES % 11.9 % (15.0-51.0); MEAN CORPUSCULAR HEMOGLOBIN 30.2 pg (29.0-33.0); MEAN CORPUSCULAR HGB CONC 32.8 g/dl (32.0-37.0); MEAN CORPUSCULAR VOLUME 92.2 fl (82.0-101.0); MEAN PLATELET VOLUME 10.5 fl (7.4-10.4); MONOCYTE # 1.2 10^3/ul (0.3-0.9); MONOCYTES % 9.3 % (0.0-11.0); NEUTROPHILS % 75.3 % (39.0-77.0); PLATELET COUNT 364 10^3/UL (140-415); RED BLOOD COUNT 3.87 10^6/ul (4.20-5.40); RED CELL DISTRIBUTION WIDTH 15.4 % (11.5-14.5); WHITE BLOOD COUNT 12.7 10^3/ul (4.8-10.8)
[2017-03-22 10:48] LABS: ALBUMIN 3.4 g/dl (3.3-4.9); ALBUMIN/GLOBULIN RATIO 0.85; BILIRUBIN,INDIRECT 0.2 mg/dl (0-1.1); BILIRUBIN,TOTAL 0.2 mg/dl (0.2-1.3); CALCIUM 9.1 mg/dl (8.4-10.2); CREATININE 1.16 mg/dl (0.44-1.00); POTASSIUM 4.1 mmol/L (3.5-5.1); TOTAL PROTEIN 7.4 g/dl (6.1-8.1)
--- NOTE | 2017-03-22 17:34 | PDOCDIS ---
Discharge Instructions CONDITION Patient Condition: Stable HOME CARE INSTRUCTIONS: Diet Instructions: Reduced Sodium ACTIVITY: Activity Restrictions: Slowly Increase Activity Avoid heavy lifting Do not operate Machinery Avoid Heavy Housework Cardiac Rehab FOLLOW UP/APPOINTMENTS Follow-up Plan Dr. Pérez Monday03/29/2017 REFERRALS Referring Provider: ALETA MAGUIRE MD, LINDA MD Mar 22, 2017 17:34
[2017-03-22] MEDS ORDERED: LOSA50TA2 PO (17:42)
[2017-03-22] MEDS ORDERED: NEBI5TAB9 PO (17:42)
[2017-03-22] MEDS ORDERED: DILT120C77 PO (17:42)
--- NOTE | 2017-03-22 18:32 | DS ---
Date/Time of Note Date/Time of Note DATE: 03/22/17 TIME: 18:26 Discharge Summary Admission/Discharge Info Admit Date/Time Mar 21, 2017 at 11:09 Discharge Date/Time March 22, 2017 Discharge Diagnosis Sick Sinus Syndrome with tachy/gogo syndrome Patient Condition: Stable Consults Dr. Luis Pérez Procedures Permanent Pacemaker Placement using a [employer] MRI compatible device Hx of Present Illness 86 year old woman with history of sick sinus syndrome with tachy/gogo syndrome and up to 8 seconds pauses. S/P Permanent pacemaker placement using a [employer] MRI compatible device left subclavian venogram and radiological interpretations , fluoroscopy supervision with intracardiac electrocardiogram performed by Dr. Pérez. Hospital Course 1. SSS S/P PPM: normal function today 2. Paroxysmal atrial fibrillation. currently in NSR 3. HTN: 4. ANXIETY. Insomnia BP MEDS CHANGED TO: BYSTOLIC 10 BID CARDIZEM CD 120 BID LOSARTAN HCTZ 50/12.5N (PRESCRIPTIONs left in CHART) RESUME COUMADIN TOMORROW PM. INR check next monday. pacer check and wound./ BP check next week with Dr. Pérez. dc planning today Home Meds Active Scripts Nebivolol* (Bystolic*) 5 Mg Tab, 10 MG PO DAILY for 30 Days, #30 TAB Prov:ALETA CANTOR MD 03/22/17 Losartan Potassium* (Cozaar*) 50 Mg Tablet, 50 MG PO DAILY for 30 Days, #30 TAB Prov:ALETA CANTOR MD 03/22/17 Diltiazem Hcl* (Cardizem CD*) 120 Mg Cap.sr.24h, 120 MG PO DAILY for 30 Days, # 30 Prov:ALETA CANTOR MD 03/22/17 Alprazolam* (Alprazolam*) 0.25 Mg Tablet, 0.25 MG PO HS for 10 Days, TAB Prov:ALETA CANTOR MD 03/16/17 Reported Medications Amiodarone Hcl* (Amiodarone Hcl*) 200 Mg Tablet, 200 MG PO DAILY, #30 TAB 03/21/17 Venlafaxine Hcl* (Venlafaxine Hcl ER*) 150 Mg Tab.er.24, 150 MG PO DAILY, TAB.SA 03/21/17 Simvastatin* (Zocor*) 20 Mg Tablet, 20 MG PO QHS, #30 TAB 03/21/17 Pregabalin* (Lyrica*) 25 Mg Capsule, 25 MG PO QHS, CAP 03/21/17 Folic Acid* (Folic Acid*) 1 Mg Tablet, 1 MG PO DAILY, TAB 03/21/17 Famotidine* (Famotidine*) 20 Mg Tablet, 20 MG PO BID, #60 TAB 03/21/17 Escitalopram Oxalate* (Lexapro*) 5 Mg Tablet, 5 MG PO QHS, #30 TAB 03/21/17 Acetaminophen* (Acetaminophen*) 500 MG Extra Strength Tablet, 500 MG PO Q4H Y for PAIN AND OR ELEVATED TEMP, TAB 03/21/17 Memantine* (Namenda* XR) 28 Mg Cap.spr.24, 28 MG PO QPM, #30 TAB 03/11/17 Celecoxib* (Celebrex*) 200 Mg Capsule, 200 MG PO DAILY, CAP 03/11/17 Warfarin Sodium* (Coumadin*) 3 Mg Tablet, 3 MG PO DAILY, TAB 03/11/17 Donepezil* (Donepezil*) 5 Mg Tablet, 5 MG PO DAILY, #30 TAB 03/11/17 Discontinued Reported Medications Carvedilol* (Carvedilol*) 12.5 Mg Tablet, 12.5 MG PO BID, #60 TAB 03/21/17 Memantine* (Namenda* XR) 28 Mg Cap.spr.24, 28 MG PO DAILY, #30 TAB 03/21/17 Donepezil* (Donepezil*) 5 Mg Tablet, 5 MG PO DAILY, #30 TAB 03/21/17 Celecoxib* (Celebrex*) 200 Mg Capsule, 200 MG PO DAILY, CAP 03/21/17 Bisoprolol Fumarate* (Bisoprolol Fumarate*) 5 Mg Tablet, 5 MG PO DAILY, TAB 03/21/17 Amlodipine Besylate* (Amlodipine Besylate*) 2.5 Mg Tablet, 2.5 MG PO DAILY, #30 TAB 03/21/17 Acetaminophen* (Acetaminophen*) 500 MG Extra Strength Tablet, 500 MG PO QAM Y for PAIN AND OR ELEVATED TEMP, TAB 03/11/17 Pregabalin* (Lyrica*) 25 Mg Capsule, 25 MG PO QHS, CAP 03/11/17 Escitalopram Oxalate* (Lexapro*) 5 Mg Tablet, 5 MG PO QPM, #30 TAB 03/11/17 Venlafaxine Hcl* (Venlafaxine Hcl ER*) 150 Mg Cap.er.24h, 150 MG PO DAILY, CAP 03/11/17 Bisoprolol Fumarate* (Bisoprolol Fumarate*) 5 Mg Tablet, 5 MG PO QAM, TAB 03/11/17 Amlodipine Besylate* (Amlodipine Besylate*) 2.5 Mg Tablet, 2.5 MG PO QAM, #30 TAB 03/11/17 Simvastatin* (Zocor*) 20 Mg Tablet, 20 MG PO QHS, #30 TAB 03/11/17 Folic Acid* (Folic Acid*) 1 Mg Tablet, 1 MG PO DAILY, TAB 03/11/17 Famotidine* (Famotidine*) 20 Mg Tablet, 20 MG PO BID, #60 TAB 03/11/17 Losartan Potassium* (Losartan Potassium*) 100 Mg Tablet, 100 MG PO QAM, TAB 03/11/17 Discontinued Scripts Carvedilol* (Carvedilol*) 12.5 Mg Tablet, 12.5 MG PO BID for 30 Days, TAB Prov:ALETA CANTOR MD 03/16/17 Enoxaparin Sodium (Enoxaparin Sodium) 60 Mg/0.6 Ml Syringe, 60 MG SC Q12 for 7 Days 1 application AM and PM on Monday, Monday and Monday. 1 application Monday AM only. Do not administer injection on Monday PM nor Monday AM (day of surgery) Prov:ALETA CANTOR MD 03/16/17 Acyclovir* (Acyclovir*) 400 Mg Tablet, 400 MG PO TID for 7 Days, TAB Prov:ALETA CANTOR MD 03/16/17 Follow-up Plan Follow uyp with Dr. Pérez Monday03/29/2017. Follow up with Dr. Cantor Monday04/05/2017 Primary Care Provider Aleta Cantor MD Time spent on discharge: > 30 minutes Pending Labs Laboratory Tests Test 03/22/17 10:06 White Blood Count 12.710^3/ul (4.8-10.8) Red Blood Count 3.8710^6/ul (4.20-5.40) Hemoglobin 11.7g/dl (12.0-16.0) Hematocrit 35.7% (37.0-47.0) Mean Corpuscular Volume 92.2fl (82.0-101.0) Mean Corpuscular Hemoglobin 30.2pg (29.0-33.0) Mean Corpuscular Hemoglobin Concent 32.8g/dl (32.0-37.0) Red Cell Distribution Width 15.4% (11.5-14.5) Platelet Count 55038^3/UL (140-415) Mean Platelet Volume 10.5fl (7.4-10.4) Neutrophils % 75.3% (39.0-77.0) Lymphocytes % 11.9% (15.0-51.0) Monocytes % 9.3% (0.0-11.0) Eosinophils % 1.9% (0.0-7.0) Basophils % 0.4% (0.0-2.0) Nucleated Red Blood Cells % 0.0/100WBC (0.0-0.0) Neutrophils # (Manual) 9.610^3/ul (1.7-7.5) Lymphocytes # 1.510^3/ul (0.8-2.9) Monocytes # 1.210^3/ul (0.3-0.9) Eosinophils # 0.210^3/ul (0.0-0.5) Basophils # 0.110^3/ul (0.0-0.1) Nucleated Red Blood Cells # 0.010^3/ul (0.0-0.0) Sodium Level 140mmol/L (135-144) Potassium Level 4.1mmol/L (3.5-5.1) Chloride Level 104mmol/L (97-110) Carbon Dioxide Level 27mmol/L (21-31) Anion Gap 13 (8-16) Blood Urea Nitrogen 21mg/dl (7-20) Creatinine 1.16mg/dl (0.44-1.00) Glucose Level 144mg/dl (70-220) Calcium Level 9.1mg/dl (8.4-10.2) Total Bilirubin 0.2mg/dl (0.2-1.3) Direct Bilirubin 0.00mg/dl (0.00-0.20) Indirect Bilirubin 0.2mg/dl (0-1.1) Aspartate Amino Transf (AST/SGOT) 26IU/L (15-46) Alanine Aminotransferase (ALT/SGPT) 35IU/L (13-69) Alkaline Phosphatase 74IU/L (42-121) Total Protein 7.4g/dl (6.1-8.1) Albumin 3.4g/dl (3.3-4.9) Globulin 4.00g/dl (1.3-3.2) Albumin/Globulin Ratio 0.85 ALETA CANTOR MD Mar 22, 2017 18:32
--- NOTE | 2017-03-22 19:16 | RADRPT ---
Vent Rate: 62 bpm RR Interval: 0 msec AR Interval: 208 msec QRS Duration: 136 msec QT Interval: 480 msec QTC Interval: 487 msec P-R-T [place]: 75 - -42 - 109 degrees Normal sinus rhythm Left axis deviation Left ventricular hypertrophy with QRS widening and repolarization abnormality Cannot rule out Septal infarct , age undetermined Abnormal ECG Electronically Signed By: Erwin Oh [id number]
--- NOTE | 2017-03-22 19:17 | RADRPT ---
Vent Rate: 68 bpm RR Interval: 0 msec [place] Interval: 210 msec QRS Duration: 136 msec QT Interval: 442 msec QTC Interval: 469 msec P-R-T [place]: 80 - -34 - 121 degrees Sinus rhythm with 1st degree AV block Left axis deviation Left ventricular hypertrophy with QRS widening and repolarization abnormality Cannot rule out Septal infarct , age undetermined Abnormal ECG Electronically Signed By: Erwin Oh [id number]
[2017-03-23] MEDS ORDERED: WARFARIN 3 MG TAB PO SCH (17:00)
== END 2017-03-22 19:54 | disposition home or self-care (01) ==
LOC: CCL 08:32 → SDS 08:32 → CCL 11:08 → TEL 11:09
PROVIDERS: ADMIT Internal Medicine Interventional Cardiology; ATTEND Internal Medicine Interventional Cardiology
DX: I49.5 Sick sinus syndrome (principal); I48.0 Paroxysmal atrial fibrillation; I10 Essential (primary) hypertension; F41.9 Anxiety disorder, unspecified; G47.00 Insomnia, unspecified; M19.90 Unspecified osteoarthritis, unspecified site; E66.9 Obesity, unspecified; Z68.30 Body mass index [BMI] 30.0-30.9, adult; F32.9 Major depressive disorder, single episode, unspecified; K21.9 Gastro-esophageal reflux disease without esophagitis; M81.0 Age-related osteoporosis without current pathological fracture
CPT/HCPCS: 33208; 71010; 80053; 85025; 85610; 85730; 93005; G0378; J0360; J0690; J2270; J3010; J7040; Q9967